=== PATIENT | female | born 1975 | race Caucasian/White ===

== ENCOUNTER 2019-02-25 17:45 | Inpatient (IN) | payer OTHER ==
[~2019-02-25] VITALS: Ht 160 cm; Wt 68.9 kg
[~2019-02-25 17:45] MED LIST changes: -ELIQUIS5 MG PO; -ENTRESTO 49 MG1 EACH PO; -FAMO40 PO; -FURO40 PO; -METO50ER PO
[2019-02-26 01:11] LABS: BASOPHILS ABSOLUTE AUTO 0.05 K/mm3 (0.00-0.23); BASOPHILS PERCENT AUTO 1 % (0-2); EOSINOPHILS ABSOLUTE AUTO 0.07 K/mm3 (0.00-0.68); EOSINOPHILS PERCENT AUTO 1 % (0-6); Hematocrit 45.3 % (33.0-51.0); Hemoglobin 14.3 g/dL (11.5-16.0); IMMATURE GRAN ABSOLUTE AUTO 0.01 K/mm3 (0.00-0.10); IMMATURE GRAN PERCENT AUTO 0 % (0-1); LYMPHOCYTES ABSOLUTE AUTO 2.85 K/mm3 (0.84-5.20); LYMPHOCYTES PERCENT AUTO 32 % (21-46); MONOCYTES ABSOLUTE AUTO 0.36 K/mm3 (0.16-1.47); MONOCYTES PERCENT AUTO 4 % (4-13); Mean Corpuscular HGB 28.1 pg (26.0-34.0); Mean Corpuscular HGB Conc 31.6 g/dL (31.5-36.5); Mean Corpuscular Volume 89 fL (80-100); Mean Platelet Volume 10.7 fL (9.1-12.4); NEUTROPHILS ABSOLUTE AUTO 5.57 K/mm3 (1.96-9.15); NEUTROPHILS PERCENT AUTO 63 % (41-73); Platelet Count 338 K/mm3 (150-400); RDW Coefficient Variation 13.2 % (11.7-14.2); RDW Standard Deviation 43.4 fL (35.1-46.3); Red Blood Cell Count 5.08 M/mm3 (3.80-5.20); White Blood Cell Count 8.91 K/mm3 (4.00-11.30)
[2019-02-26 01:30] LABS: Albumin, Blood 3.9 g/dL (3.4-5.0); Bilirubin, Total 2.2 mg/dL (0.1-1.0); Bun/Creatinine Ratio 14.4 (12.0-20.0); Creatinine, Blood 1.11 mg/dL (0.40-1.00); Globulin, Blood 3.9 g/dL (2.2-4.0); Potassium, Blood 3.4 mmol/L (3.5-5.5); Total Protein, Blood 7.8 g/dL (6.4-8.2); Troponin I 0.047 ng/mL (0.000-0.040)
--- NOTE | 2019-02-26 07:24 | NUR ---
ASSUMED CARE: PT RESTING QUIETLY. HEPARIN GTT IN PLACE. VERIFIED DOSING WITH ETHAN MEIER. SINUS TACH ON TELE AT 104 AT THIS TIME. NO ACUTE NEEDS OR DISTRESS NOTED.
--- NOTE | 2019-02-26 07:26 | NUR ---
ADMIT NOTE/SHIFT SUMMARY PATIENT ADMITTED EARLIER THIS SHIFT FROM THE ER. PATIENT SETTLED IN AND ORIENTED TO THE ROOM, UNIT, AND CALL LIGHT. PATIENT PLEASENT AND COOPERATIVE THROUGHOUT THE NIGHT. PATIENT APPEARED TO SLEEP WELL THROUGHOUT THE REST OF THE NIGHT. HEPARIN GTT RUNNING PER ORDERS AND VERIFIED WITH ONCOMING RN. PATIENT CURRENTLY APPEARS TO BE ASLEP. REPORT GIVEN TO ONCOMING ETHAN.
--- NOTE | 2019-02-26 11:27 | NUR ---
Echocardiogram using 0.50ml of Definity contrast performed.
--- NOTE | 2019-02-26 12:10 | NUR ---
REPORT GIVEN TO ETHAN VICENTE. PT TRANSFERRED TO 332 VIA WHEEL CHAIR BY HOSPITAL STAFF.
--- NOTE | 2019-02-26 17:44 | NUR ---
PT TRANSPORTED UP FROM PCU TODAY. AOX4 AND COOPERATIVE OF CARE. PT INDEPENDENT IN ROOM. DENIED ANY TREATABLE PAIN. STATED HER L LEG WAS FEELING BETTER. PT RESTINING IN BED AND CALLS APPROPRIATELY. PT HAD CAR TRIMMER STOP IN AND SHE WILL BE GOING TO [facility] IN THE AM. TALK OF HER NEW ACUTE CHF WAS VERY EMOTIONAL FOR HER. PT WAS COMFORTED MUCH THIS GEOGRAPHY TEACHER COULD DO. PT RESTING IN ROOM AT THIS TIME WILL CONTINUE TO MONITOR. DENIES SOB AT THIS TIME. PT STILL HAS A COUGH.
[2019-02-26 20:15] LABS: BASOPHILS ABSOLUTE AUTO 0.06 K/mm3 (0.00-0.23); BASOPHILS PERCENT AUTO 1 % (0-2); EOSINOPHILS ABSOLUTE AUTO 0.12 K/mm3 (0.00-0.68); EOSINOPHILS PERCENT AUTO 2 % (0-6); Hematocrit 39.5 % (33.0-51.0); Hemoglobin 12.6 g/dL (11.5-16.0); IMMATURE GRAN ABSOLUTE AUTO 0.02 K/mm3 (0.00-0.10); IMMATURE GRAN PERCENT AUTO 0 % (0-1); LYMPHOCYTES ABSOLUTE AUTO 2.42 K/mm3 (0.84-5.20); LYMPHOCYTES PERCENT AUTO 32 % (21-46); MONOCYTES ABSOLUTE AUTO 0.42 K/mm3 (0.16-1.47); MONOCYTES PERCENT AUTO 6 % (4-13); Mean Corpuscular HGB Conc 31.9 g/dL (31.5-36.5); Mean Corpuscular Volume 88 fL (80-100); Mean Platelet Volume 10.9 fL (9.1-12.4); NEUTROPHILS ABSOLUTE AUTO 4.48 K/mm3 (1.96-9.15); NEUTROPHILS PERCENT AUTO 60 % (41-73); Platelet Count 286 K/mm3 (150-400); RDW Coefficient Variation 13.3 % (11.7-14.2); RDW Standard Deviation 42.7 fL (35.1-46.3); White Blood Cell Count 7.52 K/mm3 (4.00-11.30)
--- NOTE | 2019-02-26 20:48 | NUR ---
NO NEEDS AT THIS TIME. PT HAD BEEN UP INDEPENDENTLY TO THE BATHROOM WITHOUT DIFFICULTY. HEP GTT INFUSING. CALL LT IN REACH.
--- NOTE | 2019-02-26 22:45 | NUR ---
PT RESTING QUIETLY. HEPARIN INFUSING AT 25.1 MLS/HR, 19 UNITS/KG/HR. 95% 02 SATS PER RA, 90 HR PER CONT BIOX. TELE IN PLACE AND CALL LT IN REACH.
--- NOTE | 2019-02-27 00:26 | NUR ---
PT RESTING QUIETLY. RESP E/U ON RA. 95% RA, 93 HR PER CONT BIOX. HEPARIN GTT INFUSING. TELE IN PLACE. CALL LT IN REACH.
--- NOTE | 2019-02-27 01:39 | NUR ---
PT RESTING QUIETLY. NO ACUTE CHANGES.
--- NOTE | 2019-02-27 03:41 | NUR ---
SHIFT SUMMARY: NO ACUTE CHANGES. VITAL SIGNS STABLE. HEART RATE TACHY AT BEGINNING OF SHIFT AT 107. HEART RATE LOW 90'S AT REST PER CONT BIOX. 02 SATS MID NINETIES ON RA. NO COMPLAINTS OF CHEST PAIN OR SOB. RLE EDEMA IMPROVING. HEP GTT AT 19 UNITS/KG/HR AND RATE 25.1 MLS/HR INFUSING WITHOUT DIFFICULTY. NPO AFTER MN FOR ANGIOGRAM TODAY. WILL CONTINUE TO MONITOR AND PROVIDE CARE UNTIL BEDSIDE REPORT TO ONCOMING RN.
[2019-02-27 05:23] LABS: BASOPHILS ABSOLUTE AUTO 0.06 K/mm3 (0.00-0.23); BASOPHILS PERCENT AUTO 1 % (0-2); EOSINOPHILS ABSOLUTE AUTO 0.16 K/mm3 (0.00-0.68); EOSINOPHILS PERCENT AUTO 2 % (0-6); Hemoglobin 13.8 g/dL (11.5-16.0); IMMATURE GRAN ABSOLUTE AUTO 0.01 K/mm3 (0.00-0.10); IMMATURE GRAN PERCENT AUTO 0 % (0-1); LYMPHOCYTES ABSOLUTE AUTO 3.67 K/mm3 (0.84-5.20); LYMPHOCYTES PERCENT AUTO 46 % (21-46); MONOCYTES ABSOLUTE AUTO 0.43 K/mm3 (0.16-1.47); MONOCYTES PERCENT AUTO 5 % (4-13); Mean Corpuscular HGB 27.9 pg (26.0-34.0); Mean Corpuscular HGB Conc 31.4 g/dL (31.5-36.5); Mean Corpuscular Volume 89 fL (80-100); Mean Platelet Volume 11.1 fL (9.1-12.4); NEUTROPHILS ABSOLUTE AUTO 3.68 K/mm3 (1.96-9.15); NEUTROPHILS PERCENT AUTO 46 % (41-73); Platelet Count 299 K/mm3 (150-400); RDW Coefficient Variation 13.3 % (11.7-14.2); RDW Standard Deviation 43.4 fL (35.1-46.3); Red Blood Cell Count 4.95 M/mm3 (3.80-5.20); White Blood Cell Count 8.01 K/mm3 (4.00-11.30)
[2019-02-27 05:55] LABS: Alanine Aminotransfer (ALT/SGP 46 U/L (12-78); Albumin/Globulin Ratio 0.8 (0.8-1.8); Alk Phos 52 U/L (50-136); Anion Gap 8 mmol/L (6-16); Aspartate Aminotrans (AST/SGOT 36 U/L (12-37); Bilirubin, Total 1.1 mg/dL (0.1-1.0); Blood Urea Nitrogen 16 mg/dL (8-24); Bun/Creatinine Ratio 16.9 (12.0-20.0); CO2, Blood 25 mmol/L (21-32); Calcium, Blood 8.5 mg/dL (8.5-10.1); Chloride, Blood 105 mmol/L (98-108); Creatinine, Blood 0.95 mg/dL (0.40-1.00); Globulin, Blood 3.7 g/dL (2.2-4.0); Glomerular Filtration Rate >60 (60-); Glucose, Blood 110 mg/dL (70-99); Potassium, Blood 3.7 mmol/L (3.5-5.5); Sodium, Blood 138 mmol/L (136-145); Total Protein, Blood 6.7 g/dL (6.4-8.2)
--- NOTE | 2019-02-27 06:26 | NUR ---
VERIFIED DOSE ADJUSTMENT WITH CHRISTINE ANNA RN. NEW RATE CHANGE 20 UNITS/KG/HR WITH A RATE OF 26.4 MLS/HR.
--- NOTE | 2019-02-27 11:57 | NUR ---
PT AOX4 THIS AM REPORTED HEADACHE AND WAS TREATED PER EMAR. PT INDEPENDENT IN ROOM AND LEFT FOR ETCHER ELECTROLYTIC AT 0940. NO DISTESS NOTED. PT MOVED TO PCU 7 AT 1154 CALLED BY RECIEVING NURSE.
--- NOTE | 2019-02-27 17:33 | NUR ---
SHIFT SUMMARY ASSUMED CARE AT APPROXIMATELY 1210. PT TRANSFERRED TO PCU FROM [facility]. PT ALERT AND ORIENTED. VS STABLE. O2 SATS HAVE REMAINED ABOVE 90% ON RA. BP STABLE. HR NSR. PT DENIES ANY PAIN. RIGHT RADIAL SITE WITH TR BAND IN PLACE WITH ALL OF THE AIR REMOVED. NO SIGNS OF BLEEDING, HEMATOMA, OR BRUISING NOTED. RIGHT BRACHIAL SITE WITH JENNY DRESSING IN PLACE. NO BLEEDING HEMATOMA OR BRUISING NOTED. HEPARIN GTT DISCONTINUED AFTER ELIQUIS ADMINISTRATION PER ORDERS. WILL CONTINUE TO MONITOR AND REPORT TO ONCOMING RN. CALL LIGHT IN REACH.
[2019-02-28 04:08] LABS: BASOPHILS ABSOLUTE AUTO 0.06 K/mm3 (0.00-0.23); BASOPHILS PERCENT AUTO 1 % (0-2); EOSINOPHILS ABSOLUTE AUTO 0.18 K/mm3 (0.00-0.68); EOSINOPHILS PERCENT AUTO 2 % (0-6); Hematocrit 44.1 % (33.0-51.0); Hemoglobin 13.7 g/dL (11.5-16.0); IMMATURE GRAN ABSOLUTE AUTO 0.01 K/mm3 (0.00-0.10); IMMATURE GRAN PERCENT AUTO 0 % (0-1); LYMPHOCYTES ABSOLUTE AUTO 2.78 K/mm3 (0.84-5.20); LYMPHOCYTES PERCENT AUTO 31 % (21-46); MONOCYTES ABSOLUTE AUTO 0.58 K/mm3 (0.16-1.47); MONOCYTES PERCENT AUTO 7 % (4-13); Mean Corpuscular HGB 27.5 pg (26.0-34.0); Mean Corpuscular HGB Conc 31.1 g/dL (31.5-36.5); Mean Corpuscular Volume 89 fL (80-100); NEUTROPHILS ABSOLUTE AUTO 5.36 K/mm3 (1.96-9.15); NEUTROPHILS PERCENT AUTO 60 % (41-73); Platelet Count 317 K/mm3 (150-400); RDW Coefficient Variation 13.2 % (11.7-14.2); RDW Standard Deviation 43.3 fL (35.1-46.3); Red Blood Cell Count 4.98 M/mm3 (3.80-5.20); White Blood Cell Count 8.97 K/mm3 (4.00-11.30)
[2019-02-28 04:38] LABS: Alanine Aminotransfer (ALT/SGP 36 U/L (12-78); Albumin/Globulin Ratio 0.9 (0.8-1.8); Alk Phos 50 U/L (50-136); Anion Gap 8 mmol/L (6-16); Aspartate Aminotrans (AST/SGOT 27 U/L (12-37); Bilirubin, Total 0.7 mg/dL (0.1-1.0); Blood Urea Nitrogen 17 mg/dL (8-24); Bun/Creatinine Ratio 16.3 (12.0-20.0); CO2, Blood 24 mmol/L (21-32); Calcium, Blood 8.4 mg/dL (8.5-10.1); Chloride, Blood 108 mmol/L (98-108); Creatinine, Blood 1.04 mg/dL (0.40-1.00); Globulin, Blood 3.5 g/dL (2.2-4.0); Glomerular Filtration Rate >60 (60-); Glucose, Blood 112 mg/dL (70-99); Potassium, Blood 3.8 mmol/L (3.5-5.5); Sodium, Blood 140 mmol/L (136-145); Total Protein, Blood 6.5 g/dL (6.4-8.2)
--- NOTE | 2019-02-28 06:01 | NUR ---
SHIFT SUMMARY PT SLEPT SEVERAL HOURS IN BETWEEN INTERVENTIONS; VSS; O2 SATS >93 ON RA; PULSE OX TAKEN ON SECOND DIGIT R HAND; PT C/O BACK PAIN AND DISCOMFORT; REPOSITIONED; HEAT PAD BROUGHT TO PT; TYLENOL ADMINISTERED PER EMAR; R RADIAL SITE DRY; NO CHANGES; R BRACHIAL SITE DRY; JENNY DRESSING IN PLACE; NO CHANGES; CALL LIGHT IN REACH; BED IN LOWEST POSITION; WILL CONTINUE TO MONITOR CLOSELY UNTIL HAND OFF TO DAY SHIFT RN.
[2019-02-28] MEDS ORDERED: FAMO40 PO (13:27)
[2019-02-28] MEDS ORDERED: FURO40 PO (13:28)
[2019-02-28] MEDS ORDERED: ELIQUIS5 MG PO (13:28)
[2019-02-28] MEDS ORDERED: METO50ER PO (13:29)
[2019-02-28] MEDS ORDERED: ENTRESTO 49 MG1 EACH PO (13:36)
--- NOTE | 2019-02-28 14:30 | NUR ---
DISCHARGE NOTE PT ALERT AND ORIENTED. VS STABLE. O2 SATS HAVE REMAIN ABOVE 90% ON RA. BP STABLE. HR NSR. PT DENIES CP. DR. TUCKER IN THIS AFTERNOON WITH ORDERS FOR DISCHARGE. PLAN TO SET UP LIFE [facility] THIS WEEK. DISCHARGE INSTRUCTIONS PROVIDED. NEW MEDICATIONS EDUCATED TO PT. ALL QUESTIONS ANSWERED. PT TAKEN OUT BY WHEELCHAIR.
== END 2019-02-28 14:26 | disposition home or self-care (01) | DRG 286 ==
LOC: ER 17:45 → PCU 23:37 → MEDS 02-26 12:23 → PCU 02-27 11:53
PROVIDERS: Internal Medicine; Internal Medicine Interventional Cardiology; Nurse Practitioner Acute Care; ADMIT Hospitalist
PROC: B2111ZZ Fluoroscopy of Multiple Coronary Arteries using Low Osmolar Contrast (ICD-10-PCS; principal; 2019-02-26)
PROC: 4A023N8 Measurement of Cardiac Sampling and Pressure, Bilateral, Percutaneous Approach (ICD-10-PCS; 2019-02-26)
DX: I11.0 Hypertensive heart disease with heart failure (principal); I26.99 Other pulmonary embolism without acute cor pulmonale; I50.21 Acute systolic (congestive) heart failure; N17.9 Acute kidney failure, unspecified; I82.409 Acute embolism and thrombosis of unspecified deep veins of unspecified lower extremity; I42.0 Dilated cardiomyopathy; K21.9 Gastro-esophageal reflux disease without esophagitis; E87.6 Hypokalemia
CPT/HCPCS: 36415; 71260; 74176; 76937; 80053; 81025; 83690; 83880; 84484; 85025; 85347; 85730; 93005; 93010; 93460; 94762; 96365-59; 96366; 96375-59; 99152; 99153; 99285-25; A9270; C1769; C1894; C8929; J1644; J1940; J2250; J3010; J7030; Q9957; Q9967

== ENCOUNTER → 2019-02-25 | Outpatient (CLI) | payer OTHER ==
[~2019-02-25] MED LIST: CETI5 PO; ELIQUIS5 MG PO; ENTRESTO 49 MG1 EACH PO; FAMO40 PO; FURO40 PO; HYDACE5 PO; METO50ER PO; PRED20 PO; Zantac150 MG PO
[2019-02-25 18:10] LABS: BASOPHILS ABSOLUTE AUTO 0.06 K/mm3 (0.00-0.23); BASOPHILS PERCENT AUTO 1 % (0-2); EOSINOPHILS ABSOLUTE AUTO 0.04 K/mm3 (0.00-0.68); EOSINOPHILS PERCENT AUTO 1 % (0-6); Hematocrit 42.2 % (33.0-51.0); Hemoglobin 13.2 g/dL (11.5-16.0); IMMATURE GRAN ABSOLUTE AUTO 0.01 K/mm3 (0.00-0.10); IMMATURE GRAN PERCENT AUTO 0 % (0-1); LYMPHOCYTES ABSOLUTE AUTO 2.72 K/mm3 (0.84-5.20); LYMPHOCYTES PERCENT AUTO 32 % (21-46); MONOCYTES ABSOLUTE AUTO 0.34 K/mm3 (0.16-1.47); MONOCYTES PERCENT AUTO 4 % (4-13); Mean Corpuscular HGB 28.3 pg (26.0-34.0); Mean Corpuscular HGB Conc 31.3 g/dL (31.5-36.5); Mean Corpuscular Volume 90 fL (80-100); Mean Platelet Volume 11.2 fL (9.1-12.4); NEUTROPHILS ABSOLUTE AUTO 5.22 K/mm3 (1.96-9.15); NEUTROPHILS PERCENT AUTO 62 % (41-73); Platelet Count 302 K/mm3 (150-400); RDW Coefficient Variation 13.3 % (11.7-14.2); RDW Standard Deviation 44.4 fL (35.1-46.3); Red Blood Cell Count 4.67 M/mm3 (3.80-5.20); White Blood Cell Count 8.39 K/mm3 (4.00-11.30)
[2019-02-25 18:31] LABS: Albumin, Blood 3.3 g/dL (3.4-5.0); Albumin/Globulin Ratio 0.9 (0.8-1.8); Bilirubin, Total 1.2 mg/dL (0.1-1.0); Bun/Creatinine Ratio 16.8 (12.0-20.0); Calcium, Blood 8.6 mg/dL (8.5-10.1); Creatinine, Blood 1.07 mg/dL (0.40-1.00); Globulin, Blood 3.5 g/dL (2.2-4.0); Total Protein, Blood 6.8 g/dL (6.4-8.2); Troponin I 0.056 ng/mL (0.000-0.040)
== END | disposition home or self-care (01) ==
LOC: LAB SHORT 17:23 → LAB 17:23
PROVIDERS: Nurse Practitioner
DX: R06.00 Dyspnea, unspecified (principal)
CPT/HCPCS: 80053; 83880; 84484; 85025; 85379

== ENCOUNTER 2022-06-27 13:51 | Emergency (ER) | payer OTHER ==
[~2022-06-27] VITALS: Ht 160 cm; Wt 72.6 kg
[~2022-06-27 13:51] MED LIST changes: +ELIQUIS5 MG PO; +ENTRESTO 49 MG1 EACH PO; +FAMO40 PO; +FURO40 PO; +METO50ER PO
[2022-06-27 14:04] VITALS: BP 167/104
[2022-06-27 14:24] LABS: BASOPHILS ABSOLUTE AUTO 0.04 K/mm3 (0.00-0.23); BASOPHILS PERCENT AUTO 0 % (0-2); EOSINOPHILS PERCENT AUTO 0 % (0-6); Hematocrit 34.7 % (33.0-51.0); Hemoglobin 9.7 g/dL (11.5-16.0); IMMATURE GRAN ABSOLUTE AUTO 0.07 K/mm3 (0.00-0.10); IMMATURE GRAN PERCENT AUTO 1 % (0-1); LYMPHOCYTES ABSOLUTE AUTO 1.32 K/mm3 (0.84-5.20); LYMPHOCYTES PERCENT AUTO 9 % (21-46); MONOCYTES PERCENT AUTO 5 % (4-13); Mean Corpuscular Volume 68 fL (80-100); NEUTROPHILS ABSOLUTE AUTO 12.45 K/mm3 (1.96-9.15); NEUTROPHILS PERCENT AUTO 85 % (41-73); Platelet Count 478 K/mm3 (150-400); RDW Coefficient Variation 20.2 % (11.7-14.2); RDW Standard Deviation 47.5 fL (35.1-46.3); White Blood Cell Count 14.58 K/mm3 (4.00-11.30)
[2022-06-27 14:46] LABS: Albumin, Blood 3.7 g/dL (3.4-5.0); Bilirubin, Total 0.7 mg/dL (0.1-1.0); Bun/Creatinine Ratio 26.8 (12.0-20.0); Calcium, Blood 8.9 mg/dL (8.5-10.1); Creatinine, Blood 0.9 mg/dL (0.40-1.00); Globulin, Blood 3.6 g/dL (2.2-4.0); Potassium, Blood 3.9 mmol/L (3.5-5.5); Total Protein, Blood 7.3 g/dL (6.4-8.2)
[2022-06-27 17:51] LABS: Percent Saturation 3.7 % (15.0-50.0)
== END 2022-06-27 19:46 | disposition home or self-care (01) ==
LOC: ER 13:51
PROVIDERS: Physician Assistant; Student in an Organized Health Care Education/Training Program
DX: T14.8XXA Other injury of unspecified body region, initial encounter (principal); D50.9 Iron deficiency anemia, unspecified; X58.XXXA Exposure to other specified factors, initial encounter; I11.0 Hypertensive heart disease with heart failure; I50.9 Heart failure, unspecified; K21.9 Gastro-esophageal reflux disease without esophagitis
CPT/HCPCS: 36415; 71046; 80053; 83540; 83550; 83880; 84484; 85025; 85379; 93005; 93010; 96374; 99284-25; J1885

== ENCOUNTER 2023-01-15 21:07 | Inpatient (IN) | payer OTHER ==
[~2023-01-15] VITALS: Ht 160 cm; Wt 76.8 kg
[2023-01-15 21:50] LABS: Hematocrit 38.8 % (33.0-51.0); Hemoglobin 11.5 g/dL (11.5-16.0); Mean Corpuscular HGB 22.3 pg (26.0-34.0); Mean Corpuscular HGB Conc 29.6 g/dL (31.5-36.5); Mean Corpuscular Volume 75 fL (80-100); Mean Platelet Volume 10.4 fL (9.1-12.4); NRBC ABSOLUTE 0.24 K/mm3 (0.00-0.02); NRBC Auto 0.6 /100 WBC (0.0-0.2); Platelet Count 281 K/mm3 (150-400); RDW Coefficient Variation 19.5 % (11.7-14.2); Red Blood Cell Count 5.15 M/mm3 (3.80-5.20); White Blood Cell Count 40.88 K/mm3 (4.00-11.30)
[2023-01-15 22:13] LABS: Alanine Aminotransfer (ALT/SGP 75 U/L (12-78); Albumin, Blood 2.5 g/dL (3.4-5.0); Albumin/Globulin Ratio 0.5 (0.8-1.8); Alk Phos 91 U/L (50-136); Anion Gap 11 mmol/L (6-16); Aspartate Aminotrans (AST/SGOT 75 U/L (12-37); Bilirubin, Total 1.6 mg/dL (0.1-1.0); Blood Urea Nitrogen 48 mg/dL (8-24); Bun/Creatinine Ratio 15.1 (12.0-20.0); CO2, Blood 20 mmol/L (21-32); Calcium, Blood 8.4 mg/dL (8.5-10.1); Chloride, Blood 102 mmol/L (98-108); Creatinine, Blood 3.18 mg/dL (0.40-1.00); Globulin, Blood 4.6 g/dL (2.2-4.0); Glomerular Filtration Rate 17 (60-); Glucose, Blood 83 mg/dL (70-99); Potassium, Blood 4.5 mmol/L (3.5-5.5); Sodium, Blood 133 mmol/L (136-145); Total Protein, Blood 7.1 g/dL (6.4-8.2)
[2023-01-15 22:42] LABS: BAND PERCENT MAN 15 % (0-8); BASOPHILS PERCENT MAN 1 % (0-2); EOSINOPHILS PERCENT MAN 0 % (0-6); MONOCYTES ABSOLUTE MAN 0.81 K/mm3 (0.16-1.47); MONOCYTES PERCENT MAN 2 % (4-13); NEUTROPHILS ABSOLUTE MAN 39.24 K/mm3 (1.96-9.15); PROMYELOCYTE PERCENT MAN 1 % (0-0); SEG NEUTROPHILS PERCENT MAN 81 % (41-73); TOTAL CELLS COUNTED 100
[2023-01-15 22:46] LABS: Base Excess Venous -4.9 mmol/L; Bicarbonate Venous 19.8 mmol/L (24.0-30.0); PCO2 Venous 45.8 mmHg (38-42); pH Blood Venous 7.29 (7.34-7.37)
[2023-01-15 22:55] LABS: Ethanol (Alcohol), Blood, Med <3 mg/dL; Magnesium, Blood 1.8 mg/dL (1.6-2.4); Phosphorus, Blood 5.3 mg/dL (2.5-4.9)
[2023-01-15 23:38] LABS: D-Dimer, Quantitative 1.76 mg/L FEU (0.00-0.52); International Normalized Ratio 1.57; Prothrombin Time Results 16.1 Sec (9.7-11.5)
[2023-01-16] VITALS (42 sets, daily range): BP systolic 66–105; BP diastolic 38–69
[2023-01-16] MEDS ORDERED: ACET325 PO (04:15)
--- NOTE | 2023-01-16 05:25 | NUR ---
ARRIVAL TO ICU: RECEIVED REPORT FROM ZAIDA LONG. PT ARRIVED TO ICU 03 AT 0315 FROM ER VIA GURNEY. SLID ACROSS TO ICU BED WITH ASSIST. PT ALERT AND ORIENTED TO TIME, PERSON, PLACE AND SITUATION. ABLE TO ANSWER QUESTIONS AND MAKE NEEDS KNOWN. PT ON LEVOPHED AT 7 MCG/MIN TO MAINTAIN MAP >65. ST WITH HR 100'S. DENIES CHEST PAIN OR PRESSURE. PT ON 7L HI-FLOW WITH SATS >90%. PT ENDORSES FEELING SOB AT TIMES, WHICH IS RELIEVED WITH REPOSITIONING. LUNG SOUNDS DIM WITH FINE CRACKLES NOTED. NO BM YET SINCE ARRIVAL TO ICU, NO VOID YET. PT DENIES FEELING LIKE SHE HAS TO VOID. PT HAS 20 G LAC, 20G RAC, SALINE LOCKED CURRENTLY. DR. CARDENAS AT BEDSIDE TO PLACE CENTRAL LINE. CENTRAL LINE IN RIGHT IJ, PATENT AND INFUSING. HEPARIN GTT STARTED AT 18 UNITS/KG/HR. LOWER LEFT LEG WARM TO THE TOUCH, EDEMA NOTED AND LARGE BLACK BLISTERS NOTED TO LEFT FOOT. PATIENT C/O SEVERE PAIN TO LLE, MEDICATED PER EMAR. BED LOW AND LOCKED, CALL LIGHT IN REACH.
[2023-01-16 07:03] LABS: Hematocrit 36.2 % (33.0-51.0); Hemoglobin 10.7 g/dL (11.5-16.0); Mean Corpuscular HGB 22.1 pg (26.0-34.0); Mean Corpuscular HGB Conc 29.6 g/dL (31.5-36.5); Mean Corpuscular Volume 75 fL (80-100); Mean Platelet Volume 10.7 fL (9.1-12.4); NRBC ABSOLUTE 0.42 K/mm3 (0.00-0.02); Platelet Count 311 K/mm3 (150-400); RDW Coefficient Variation 19.2 % (11.7-14.2); RDW Standard Deviation 50.1 fL (35.1-46.3); Red Blood Cell Count 4.85 M/mm3 (3.80-5.20); White Blood Cell Count 42.42 K/mm3 (4.00-11.30)
--- NOTE | 2023-01-16 07:15 | NUR ---
SHEET METAL JOURNEYMAN AT BEDSIDE.
[2023-01-16 07:17] LABS: Albumin, Blood 2.2 g/dL (3.4-5.0); Albumin/Globulin Ratio 0.5 (0.8-1.8); Bilirubin, Total 1.6 mg/dL (0.1-1.0); Bun/Creatinine Ratio 13.8 (12.0-20.0); Calcium, Blood 8.2 mg/dL (8.5-10.1); Creatinine, Blood 3.77 mg/dL (0.40-1.00); Globulin, Blood 4.2 g/dL (2.2-4.0); Potassium, Blood 4.7 mmol/L (3.5-5.5); Total Protein, Blood 6.4 g/dL (6.4-8.2)
[2023-01-16 07:34] LABS: BAND PERCENT MAN 8 % (0-8); BASOPHILS PERCENT MAN 0 % (0-2); EOSINOPHILS PERCENT MAN 0 % (0-6); LYMPHOCYTES % ATYPICAL MANUAL 1 % (0-0); LYMPHOCYTES ABSOLUTE MAN 0.42 K/mm3 (0.84-5.20); METAMYELOCYTE ABSOLUTE MAN 0.42 K/mm3 (0.00-0.00); METAMYELOCYTE PERCENT MAN 1 % (0-0); MONOCYTES ABSOLUTE MAN 1.27 K/mm3 (0.16-1.47); MONOCYTES PERCENT MAN 3 % (4-13); NEUTROPHILS ABSOLUTE MAN 40.29 K/mm3 (1.96-9.15); SEG NEUTROPHILS PERCENT MAN 87 % (41-73); TOTAL CELLS COUNTED 100
--- NOTE | 2023-01-16 08:00 | NUR ---
RESIDENTS AND DR. KELLY TO BEDSIDE. SHOWED DR. KELLY PT'S L FOOT AND LEG AND REQUESTED A CT. L FOOT HAS PURPLE DISCOLORATION AROUND SMALL TOE AND UP THE SIDE OF THE FOOT. THIS RN MARKED OUTLINE WITH MARKER. ALSO HAS LARGE BLACK BLISTER TO THE SIDE OF FOOT AND ONE TO THE BOTTOM OF THE FOOT BOTH INTACT. WOUND PHOTOS TAKEN. PT ALSO HAS A PEA SIZED PURPLE SPOT TO L INNER CALF. DOPPLER PULSES FOUND BILAT. SKIN TO L LEG UP TO GROIN IS RED AND HOT TO THE TOUCH. LEGS ARE SWOLLEN BILAT BUT THE L IS BIGGER THAN R. REMAINS HYPOTENSIVE. MENTATION IS SLOWER THAN WHAT WAS REPORTED IN [facility].
--- NOTE | 2023-01-16 08:35 | NUR ---
PT TAKEN TO CT VIA BED WITH RN ACCOMPANYING. PT IS PAINFUL WITH ANY MOVEMENT OF L LEG BUT OTHERWISE WILL SLEEP WHEN LEFT UNDISTURBED.
[2023-01-16 11:11] LABS: Vancomycin, Random 22.7 ug/mL
--- NOTE | 2023-01-16 11:20 | NUR ---
ORDERS FROM DR. KELLY TO PLACE BRANCH PT IS CRITICALLY ILL AND HAS NOT VOIDED YET. WHILE PREPARING FOR CATH RN NOTICED A FOUL ODOR AND COULD SEE A TAMPON STRING. WHEN ASKED ABOUT HOW LONG AGO IT WAS PLACED PT STATES "PROBABLY A DAY AND A HALF AGO". REMOVED TAMPON, DID PERICARE, THEN PLACED BRANCH PER ORDERS. CALLED DR. KELLY TO NOTIFY HER OF FINDINGS. DR. RAZO HAS BEEN CONSULTED FOR L LEG WOUND. PURPLE DISCOLORATION TO FOOT IS STILL WITHIN MARKINGS MADE EARLIER BY THIS RN, REDNESS UNCHANGED, AND DOPPLER PULSES WELL. CONTINUES TO BE HYPOTENSIVE AND LET DR. KELLY KNOW, NEW ORDERS FOR ALBUMIN TO BE GIVEN BEFORE VASOPRESSIN.
[2023-01-16 11:29] LABS: U Amphetamine Screen DETECTED; U Barbituate Screen Not Detected; U Benzodiazapine Screen Not Detected; U Buprenorphine Screen Not Detected; U Cannabinoids Screen Not Detected; U Cocaine Screen Not Detected; U Methadone Screen Not Detected; U Methamphetamine Screen DETECTED; U Opiates Screen Not Detected; U Oxycodone Screen DETECTED; U Phencyclidine Screen Not Detected
--- NOTE | 2023-01-16 12:05 | NUR ---
DR. RAZO AT BEDSIDE FOR EVAL OF L LEG. UPDATED ON CONDITION AND PRESSORS. BLISTER TO OUTER SIDE OF THE FOOT BROKE OPEN WITH SEROSANGUINOUS FLUID. DR. RAZO ORDERED HEPARIN TO BE STOPPED NOW AND PTT TO BE DRAWN AT 1330 TO PREPARE PT TO GO TO OR. CADY PALLIATIVE CARE RN IS GOING TO CONTACT S.O.
--- NOTE | 2023-01-16 13:00 | NUR ---
VASOPRESSIN STARTED. S.O. AT BEDSIDE, DR. KELLY UPDATING HIM. PALLIATIVE CARE AND SPIRITUAL CARE ASSISTING WITH NEEDS AND QUESTIONS. DR. SKY ALSO CAME BY TO SEE PT.
--- NOTE | 2023-01-16 14:40 | NUR ---
ANESTHESIOLOGIST CALLED TO REQUEST TALENT SOURCING SPECIALIST TO PLACE AN A-LINE BEFORE SURGERY. DR. AUGUST PLACED ONE TO R RADIAL.
--- NOTE | 2023-01-16 15:27 | NUR ---
"Spiritual Care Visit | Nurse Request Pt. is being prepped for surgery and SO displays evidence of high anxiety. Stayed with SO in the hallway giving words of encouragement and facilitating a life review as the medical team prepared the Pt. for surgery. Whene surgical team came for the Pt. Pt. displayed evidence of not being aware that she would be having an amputation of the lower leg. Pt. displayed emotions and anxiety. The Pt. welcomed prayer in that charged moment. Prayed with Pt. and SO. When team brought Pt. to surgery. This casting chipper escorted SO to the ICU waiting room, and informed attending nurses where he was waiting."
--- NOTE | 2023-01-16 15:49 | NUR ---
PT TAKEN TO OR VIA BED BY BARKING MACHINE FEEDER AND DR. RAZO. PT WAS CONVERSING WITH S.O. BEFORE LEAVING THE ROOM BUT STILL VERY DROWSY.
--- NOTE | 2023-01-16 16:01 | NUR ---
01/16/23 1600 Gricelda Patel NO PREOP ANTIBIOTCS PATIENT IS ON SCHEDULED ANTIBIOTICS PER .
--- NOTE | 2023-01-16 16:06 | NUR ---
Pt can respond but minimal due to sepsis and fatigue. Pt seen by ortho and intesivist. Pt going to surgery for intervention. Called to come in and give him information on surgery and prognosis. Pt SO understanble distraught. Chaplina called for support. Central line consented and placed pt sent to OR. kps score 30%. gently advised of severity of her condition.
--- NOTE | 2023-01-16 17:00 | NUR ---
PT BACK FROM OR. INTUBATED AND VERSED PUSHED BY ANESTHESIOLOGIST WHEN BACK IN ROOM. LEVOPHED AT 22MCG/MIN AND VASOPRESSIN RUNNING. NO SPONT MOVEMENT FROM PT. OG PLACED AND CONFIRMED WITH AUSCULATION. PT HAS L BKA WITH DONOVAN DRAIN TO STUMP THAT HAS SEROSANG DRAINAGE. HAS STUMP SOCK IN PLACE, NO BLEEDING NOTED. STILL HAS REDNESS TO THIGH. A-LINE WITH GOOD PLETH TO R RADIAL, ARM BOARD IN PLACE. DR. AUGUST CONSULTED AND WILL BE IN TO SEE PT. SEE PREVIOUS NOTES FOR SCOPE OF THE DAY. UPDATED S.O. AFTER PT HAS RETURNED FROM SURGERY.
[2023-01-16 17:48] LABS: Body Fluid Crystals NEG (NEGATIVE)
[2023-01-16 18:03] LABS: BODY FLUID RBC 0.027 M/mm3 (0-0)
[2023-01-16 18:45] LABS: RBC Count, Synovial Fluid 27000 /mm3 (0-0); WBC Count, Synovial Fluid 150660 /mm3 (0-180)
--- NOTE | 2023-01-16 19:15 | NUR ---
ASSUMPTION OF CARE: RECEIVED REPORT FROM ZEFERINO LONG. PT INTUBATED AND SEDATED. DOES NOT FOLLOW COMMANDS. DOES NOT OPEN EYES TO VERBAL STIMULI OR WITHDRAW FROM PAIN. AC/VC SETTINGS 14/450/5/80%. SPO2 >94%. NO COUGH, GAG OR SWALLOW NOTED WITH ORAL OR DEEP SUCTIONING. SMALL THICK SECRETIONS NOTED. PT ON LEVOPHED AT 22 MCG/MIN, VASO AT 0.04 UNITS/MIN TO MAINTAIN MAP >65. SR/ST 90'S-100'S. LR INFUSING AT 250 ML/HR. ART LINE TO RIGHT RADIAL. CENTRAL LINE TO RIGHT IJ, INFUSING. PIV TO LAC AND RAC, INFUSING. OGT IN PLACE, CLAMPED. PUPILS SLUGGISH BILATERALLY. DONOVAN DRAIN TO SURGICAL SITE, DRAINING SMALL AMOUNTS OF RED LIQUID. LEFT BKA HAS DRESSING INTACT THAT IS CLEAN AND DRY. BRANCH IN PLACE, PATENT AND DRAINING TO GRAVITY. SKIN IS WARM TO THE TOUCH WITH AN AREA OF REDNESS ABOVE SURGICAL SITE, MARKED WITH A SKIN MARKER.
[2023-01-16 19:16] LABS: Lymphs, Synovial Fluid 1 % (0-15); Monocytes/Macrophages, Synovia 6 % (0-65); Neutrophils, Synovial Fluid 93 % (0-24)
[2023-01-16 19:18] LABS: Appearance, Synovial Fluid Turbid (Clear); Color, Synovial Fluid Yellow (None-P Yel)
[2023-01-16 20:58] LABS: Source, Urine Foley catheter
[2023-01-16 21:01] LABS: Appearance, Urine Hazy (Clear); Bilirubin, Urine Neg (Neg); Blood, Urine 5+ (Neg); Color, Urine Yellow (P-Yellow); Glucose Qualitative, Urine Neg (Neg); Ketones, Urine Neg (Neg); Leukocyte Esterase, Urine 2+ (Neg); Nitrite, Urine Neg (Neg); Protein, Urine 3+ (Neg); Urobilinogen, Urine NORM (Normal)
[2023-01-16 21:07] LABS: Amorphous Mod (0-Heavy); Bacteria Mod /hpf; Mucus Light (0-Heavy); Red Blood Cells, Urine TNTC /hpf (0-2); Squamous Epithelial Cells Not Seen /hpf (Few)
[2023-01-16 22:57] LABS: Anion Gap 11 mmol/L (6-16); Blood Urea Nitrogen 56 mg/dL (8-24); CO2, Blood 19 mmol/L (21-32); Calcium, Blood 7.5 mg/dL (8.5-10.1); Chloride, Blood 101 mmol/L (98-108); Creatinine, Blood 4.01 mg/dL (0.40-1.00); Glomerular Filtration Rate 13 (60-); Glucose, Blood 135 mg/dL (70-99); Potassium, Blood 5.8 mmol/L (3.5-5.5); Sodium, Blood 131 mmol/L (136-145); Vancomycin, Random 19.1 ug/mL
[2023-01-16 23:18] LABS: PCO2 Arterial 42.6 mmHg (35-45)
[2023-01-17] VITALS (11 sets, daily range): BP systolic 125–149; BP diastolic 66–78
[2023-01-17 05:24] LABS: Hematocrit 31.7 % (33.0-51.0); Hemoglobin 9.4 g/dL (11.5-16.0); Mean Corpuscular HGB Conc 29.7 g/dL (31.5-36.5); Mean Corpuscular Volume 74 fL (80-100); Mean Platelet Volume 10.7 fL (9.1-12.4); NRBC ABSOLUTE 1.57 K/mm3 (0.00-0.02); NRBC Auto 4.9 /100 WBC (0.0-0.2); Platelet Count 220 K/mm3 (150-400); RDW Coefficient Variation 18.7 % (11.7-14.2); RDW Standard Deviation 49.9 fL (35.1-46.3); Red Blood Cell Count 4.27 M/mm3 (3.80-5.20); White Blood Cell Count 32.28 K/mm3 (4.00-11.30)
--- NOTE | 2023-01-17 05:46 | NUR ---
SHIFT SUMMARY: PT REMAINS INTUBATED AND SEDATED T/O THE SHIFT. WITHDRAWS FROM PAIN, NOT FOLLOWING COMMANDS OR OPENING EYES TO VERBAL STIMULI. COUGH,GAG,SWALLOW NOTED. THICK, XIONG SECRETIONS FROM ET TUBE. AC/PC 15/8, 75% FIO2, WITH RATE 16. SPO2 >94%. LEVOPHED TITRATED T/O THE SHIFT, CURRENTLY INFUSING AT 24 MCG/MIN WITH VASOPRESSIN AT 0.04 UNITS/MIN TO MAINTAIN MAP >65. NORMAL SALINE AT 200 ML/HR. PROPOFOL AT 25 MCG/KG/MIN. CENTRAL LINE TO RIJ, INFUSING. RIGHT RADIAL ART LINE IN PLACE. PIVS INTACT, PATENT AND INFUSING. OGT CLAMPED. BRANCH PATENT AND DRAINING TO GRAVITY, DARK YELLOW URINE. LEFT BKA DRESSING CLEAN, DRY AND INTACT. DONOVAN DRAIN IN PLACE, DRAINING VERY MINIMAL AMOUNT OF RED LIQUID. TEMP 100.1, FAN IN PLACE. SCREENPLAY WRITER CONTINUOUS, SR WITH RATE 80'S-90'S. BED LOW AND LOCKED.
[2023-01-17 05:57] LABS: BAND PERCENT MAN 16 % (0-8); BASOPHILS PERCENT MAN 0 % (0-2); EOSINOPHILS PERCENT MAN 0 % (0-6); LYMPHOCYTES ABSOLUTE MAN 0.96 K/mm3 (0.84-5.20); LYMPHOCYTES PERCENT MAN 3 % (21-46); MONOCYTES ABSOLUTE MAN 0.96 K/mm3 (0.16-1.47); MONOCYTES PERCENT MAN 3 % (4-13); NEUTROPHILS ABSOLUTE MAN 30.34 K/mm3 (1.96-9.15); SEG NEUTROPHILS PERCENT MAN 78 % (41-73); TOTAL CELLS COUNTED 100
[2023-01-17 06:06] LABS: Alanine Aminotransfer (ALT/SGP 73 U/L (12-78); Albumin/Globulin Ratio 0.7 (0.8-1.8); Alk Phos 70 U/L (50-136); Anion Gap 10 mmol/L (6-16); Aspartate Aminotrans (AST/SGOT 157 U/L (12-37); Bilirubin, Total 2.2 mg/dL (0.1-1.0); Blood Urea Nitrogen 59 mg/dL (8-24); Bun/Creatinine Ratio 14.4 (12.0-20.0); CO2, Blood 18 mmol/L (21-32); Calcium, Blood 7.2 mg/dL (8.5-10.1); Chloride, Blood 102 mmol/L (98-108); Creatinine, Blood 4.11 mg/dL (0.40-1.00); Globulin, Blood 4.4 g/dL (2.2-4.0); Glomerular Filtration Rate 13 (60-); Glucose, Blood 136 mg/dL (70-99); Potassium, Blood 5.8 mmol/L (3.5-5.5); Sodium, Blood 130 mmol/L (136-145); Total Protein, Blood 7.4 g/dL (6.4-8.2); Vancomycin, Random 7.5 ug/mL
--- NOTE | 2023-01-17 11:00 | NUR ---
DR. RAZO IN TO SEE PT. SHE TOOK DRESSING DOWN AND EXAMINED LEG. SUTURES AND PETROLEUM GUAZE INTACT, NO DRAINAGE. DONOVAN DRAIN TO KNEE WITH SM AMT OF SEROSANG DRAINAGE, SECURED WITH SUTURES. 4X4'S PLACED OVER SITE AND WRAPPED WITH KERLEX THEN MARIA FERNANDA BANDAGE, THEN SECURED WITH STUMP SOCK. PT HAS MOTTLING OVER BOTH KNEES, MD'S AWARE. PT REMAINS ON HIGH DOSE OF PRESSORS.
[2023-01-17 13:25] LABS: Base Excess Venous -13.8 mmol/L; Bicarbonate Venous 13.9 mmol/L (24.0-30.0); PCO2 Venous 41.8 mmHg (38-42)
[2023-01-17 13:26] LABS: pH Blood Venous 7.16 (7.34-7.37)
[2023-01-17 13:46] LABS: Bun/Creatinine Ratio 14.2 (12.0-20.0); Creatinine, Blood 4.38 mg/dL (0.40-1.00); Potassium, Blood 6.1 mmol/L (3.5-5.5)
--- NOTE | 2023-01-17 14:30 | NUR ---
DR. CASILLAS CONSULTED ON PT EARLIER IN THE DAY. PT'S POTASSIUM LEVEL HAD INCREASED TO 6.1. IT WAS DECIDED BY DR. CASILLAS AND DR. HENDRICKSON TO PLACE DIALYSIS CATH AND START DIALYSIS TODAY. BICARB GIVEN FOR ACIDOSIS. S.O. UPDATED VIA PHONE BY DR. HENDRICKSON AND DR. CASILLAS.
--- NOTE | 2023-01-17 16:00 | NUR ---
MULTIMEDIA MANAGER TO BEDSIDE TO START DIALYSIS.
--- NOTE | 2023-01-17 18:16 | NUR ---
SUMMARY PT REMAINS UNRESPONSIVE ON THE VENTILATOR. ON PROPOFOL PT BECOMES ASYNCHRONOUS WITH THE VENTILATOR WHEN SEDATION IS LOWERED. DR. RAZO CAME IN AND TOOK THE DRESSING DOWN ON THE L BKA THEN REPLACED. DONOVAN DRAIN INTACT WITH SM AMT OF SEROSANG DRAINAGE. MOTTLED OVER BOTH KNEES AND MD'S AWARE. DR. CASILLAS CONSULTED TODAY. DECISION WAS MADE TO START DIALYSIS TODAY. LIJ TRIALYSIS CATH PLACED BY DR. HENDRICKSON. PT TOLERATED DIALYSIS WELL AND PRESSOR REQUIREMENT IS DECREASING. BICARB WAS GIVEN AFTER VBG WAS DRAWN. S.O. HAS BEEN UPDATED ON TODAY'S EVENTS.
--- NOTE | 2023-01-17 19:15 | NUR ---
ASSUMPTION OF CARE: RECEIVED REPORT FROM ZEFERINO LONG. PT INTUBATED AND SEDATED. SEDATION TURNED DOWN FOR ASSESSMENT. PT DOES NOT RESPOND TO PAINFUL STIMULI, NOT OPENING EYES TO VERBAL STIMULI OR FOLLOWING COMMANDS. PROPOFOL AT 20 MCG/KG/MIN FOR VENT COMPLIANCE. COUGH, GAG AND SWALLOW NOTED WITH SUCTIONING. AC/PC 15/8 FIO2 60%. SPO2 >95%. LEVOPHED TITRATED TO 6 MCG/MIN WITH VASO ON SB FOR MAP >65. ART LINE TO RIGHT WRIST CLEAN, DRY AND INTACT. CENTRAL LINE TO RIGHT IJ PATENT AND INFUSING. DIALYSIS CATHETER IN LEFT IJ, CLEAN DRY AND INTACT. OGT CLAMPED. NO BM YET. BRANCH, PATENT AND DRAINING TO GRAVITY. PIV'S LEFT AND RIGHT AC SALINE LOCKED. LEFT BKA DRESSING CLEAN, DRY AND INTACT. DONOVAN DRAIN SET TO GRAVITY SUCTION WITH VERY MINIMAL DRAINAGE. SEE SHIFT ASSESSMENT FOR FULL ASSESSMENT.
[2023-01-18] VITALS (13 sets, daily range): BP systolic 115–132; BP diastolic 54–62
[2023-01-18 04:41] LABS: Hematocrit 27.8 % (33.0-51.0); Hemoglobin 8.7 g/dL (11.5-16.0); Mean Corpuscular HGB 21.9 pg (26.0-34.0); Mean Corpuscular HGB Conc 31.3 g/dL (31.5-36.5); Mean Corpuscular Volume 70 fL (80-100); Mean Platelet Volume 10.5 fL (9.1-12.4); NRBC ABSOLUTE 1.57 K/mm3 (0.00-0.02); NRBC Auto 7.4 /100 WBC (0.0-0.2); Platelet Count 152 K/mm3 (150-400); RDW Coefficient Variation 17.9 % (11.7-14.2); RDW Standard Deviation 44.6 fL (35.1-46.3); Red Blood Cell Count 3.98 M/mm3 (3.80-5.20); White Blood Cell Count 21.36 K/mm3 (4.00-11.30)
[2023-01-18 05:02] LABS: Anion Gap 11 mmol/L (6-16); Blood Urea Nitrogen 52 mg/dL (8-24); Bun/Creatinine Ratio 14.2 (12.0-20.0); CO2, Blood 23 mmol/L (21-32); Calcium, Blood 7.4 mg/dL (8.5-10.1); Chloride, Blood 97 mmol/L (98-108); Creatinine, Blood 3.66 mg/dL (0.40-1.00); Glomerular Filtration Rate 15 (60-); Glucose, Blood 106 mg/dL (70-99); Phosphorus, Blood 6.9 mg/dL (2.5-4.9); Potassium, Blood 4.5 mmol/L (3.5-5.5); Sodium, Blood 131 mmol/L (136-145)
[2023-01-18 05:14] LABS: BAND PERCENT MAN 10 % (0-8); BASOPHILS PERCENT MAN 0 % (0-2); EOSINOPHILS PERCENT MAN 0 % (0-6); LYMPHOCYTES PERCENT MAN 8 % (21-46); MONOCYTES ABSOLUTE MAN 0.42 K/mm3 (0.16-1.47); MONOCYTES PERCENT MAN 2 % (4-13); NEUTROPHILS ABSOLUTE MAN 19.22 K/mm3 (1.96-9.15); SEG NEUTROPHILS PERCENT MAN 80 % (41-73); TOTAL CELLS COUNTED 100
--- NOTE | 2023-01-18 06:23 | NUR ---
SHIFT SUMMARY: NO ACUTE CHANGES T/O THE SHIFT. PT REMAINS INTUBATED AND SEDATED. NO RESPONSE TO PAINFUL OR VERBAL STIMULI. COUGH AND GAG REMAIN. SCANT SECRETIONS NOTED WITH SUCTIONING. VENT SETTINGS AC/PC RATE 15 PEEP 8 FIO2 60%. SPO2 >94%. PROPOFOL AT 20 MCG/KG/MIN FOR VENT COMPLIANCE. PUPILS REMAIN SLUGGISH BILATERALLY. LEVOPHED AT 8 MCG/MIN TITRATED TO MAINTAIN MAP >65. ART LINE TO RIGHT RADIAL, C/D/I. CENTRAL LINE TO RIGHT IJ, INFUSING C/D/I. LEFT IJ DIALYSIS CATH, C/D/I. NO BM T/O THE SHIFT. BRANCH REMAINS PATENT AND DRAINING TO GRAVITY. DONOVAN DRAIN TO LEFT LEG, SMALL AMOUNT OF SEROSANGINOUS DRAINAGE. LEFT BKA DRESSING C/D/I.
--- NOTE | 2023-01-18 08:45 | NUR ---
NOTED THIS AM WITH ASSESSMENT PT HAD AN UNUSED SPO2 PROBE ON L INDEX FINGER. REMOVED BY THIS RN AND FOUND BASE OF NAILBED HAS PURPLE DISCOLORATION AND FINGER IS RED UP TO FIRST KNUCKLE. WOUND PHOTOS TAKEN AND BROUGHT TO THE ATTENTION OF DR. KELLY WHO IS AT BEDSIDE. NO NEW ORDERS WILL MONITOR FOR WORSENING. SHAPE CARVER AT BEDSIDE PREPARING TO START.
--- NOTE | 2023-01-18 11:00 | NUR ---
PT TOLERATING DIALYSIS WELL. TITRATING LEVOPHED DOWN. DR. HENDRICKSON AT BEDSIDE, MADE AWARE OF L INDEX FINGER. TODAY PT HAS MINIMAL MOTTLING TO BILAT KNEES COMPARED TO YESTERDAY. R FOOT HAS STRONG PALPABLE PULSE, IS WARM TO THE TOUCH, AND CAP REFILL HAS IMPROVED COMPARED TO YESTERDAY. DONOVAN DRAIN L KNEE HAS SCANT AMT OF SEROSANG DRAINAGE. THIGH IS STILL REDDENED BUT STILL WITHIN MARKINGS.
--- NOTE | 2023-01-18 15:00 | NUR ---
DONOVAN DRAIN IS NOT HOLDING SUCTION LONGER THAN A FEW SECONDS. CALLED DR. RAZO WHO STATES IT IS OK, SHE WAS IN EARLIER TODAY AND NOTICED IT WELL.
--- NOTE | 2023-01-18 18:41 | NUR ---
SUMMARY PT INTUBATED AND SEDATED WITH PROPOFOL. SEDATION VACATION THIS AFTERNOON. PT LASTED A COUPLE HOURS BEFORE BECOMING RESTLESS. PT WAS AGRESSIVELY CHEWING ON ETT AND REACHING FOR ETT. ARMS ARE STRONG. DOES NOT FOLLOW COMMANDS BUT IS OPENING EYE'S SPONT AND WITHDRAWING FROM PAIN. RESTARTED PROPOFOL AT 10MCG/KG/MIN. PT REMAINS ON SPONTANEOUS SETTINGS ON THE VENT SINCE SEDATION VACATION AND IS TOLERATING WELL. L BKA DRESSING C/D/I. DONOVAN DRAIN WITH SM AMT OF SEROSANG DRAINAGE. DONOVAN DRAIN IS NOT HOLDING SUCTION FOR VERY LONG, DR. RAZO AWARE. STILL HAS REDNESS UP TO THIGH ON L LEG AND WARM TO TOUCH AND WITHIN MARKINGS. LEVOPHED TITRATED DOWN AND VASOPRESSIN REMAINS OFF. DIALYSIS TODAY AND PT TOLERATED WELL WITH FLUID REMOVAL. S.O. IN THIS AM AND UPDATED.
--- NOTE | 2023-01-18 20:30 | NUR ---
UPDATE: FAMILY AT THE BEDSIDE TO SEE PT. SIGNIFICANT OTHER AND PT SISTER UPDATED TO PLAN OF CARE.
--- NOTE | 2023-01-18 23:22 | NUR ---
ASSUMPTION OF CARE: RECEIVED REPORT FROM ZEFERINO LONG. PT INTUBATED AND SEDATED. VENT SETTINGS AC/PC RATE 16, PEEP 8, FIO2 50%. SPO2 >95%. MODERATE THIN SECRETIONS SUCTIONED. PT OPENS EYES TO VERBAL STIMULI AND WITHDRAWS FROM PAIN, NOT FOLLOWING COMMANDS. PT RESTLESS AND APPEARS AGITATED AND TRIES TO PULL AT ET TUBE. PROPOFOL INCREASED TO 15 MCG/KG/MIN FOR VENT COMPLIANCE AND COMFORT. THERMOSTATIC CONTROLS SUPERVISOR CONTINUOUS SR WITH HR 80'S. LEVOPHED AT 4 MCG/MIN FOR MAP >65. TUBE FEED AT GOAL THROUGH OGT. CENTRAL LINE TO RIGHT IJ, PATENT AND INFUSING. DIALYSIS CATH TO LEFT IJ, SALINE LOCKED. PIV TO LEFT AC C/D/I. RIGHT RADIAL ART LINE C/D/I. IgG INFUSING AT 29 ML/HR AT SHIFT CHANGE, INCREASED DOSE TO 100 ML/HR, PT TOLERATING WELL. SEE SHIFT ASSESSMENT FOR FULL ASSESSMENT.
[2023-01-19] VITALS (49 sets, daily range): BP systolic 85–125; BP diastolic 50–84
[2023-01-19 05:03] LABS: Hematocrit 28.3 % (33.0-51.0); Hemoglobin 9.1 g/dL (11.5-16.0); Mean Corpuscular HGB 21.8 pg (26.0-34.0); Mean Corpuscular HGB Conc 32.2 g/dL (31.5-36.5); Mean Corpuscular Volume 68 fL (80-100); Mean Platelet Volume 10.1 fL (9.1-12.4); NRBC ABSOLUTE 1.26 K/mm3 (0.00-0.02); NRBC Auto 6.2 /100 WBC (0.0-0.2); Platelet Count 145 K/mm3 (150-400); RDW Coefficient Variation 17.9 % (11.7-14.2); RDW Standard Deviation 42.9 fL (35.1-46.3); Red Blood Cell Count 4.18 M/mm3 (3.80-5.20); White Blood Cell Count 20.41 K/mm3 (4.00-11.30)
[2023-01-19 05:21] LABS: Albumin, Blood 2.7 g/dL (3.4-5.0); Anion Gap 11 mmol/L (6-16); Blood Urea Nitrogen 54 mg/dL (8-24); Bun/Creatinine Ratio 16.1 (12.0-20.0); CO2, Blood 25 mmol/L (21-32); Calcium, Blood 7.4 mg/dL (8.5-10.1); Chloride, Blood 95 mmol/L (98-108); Creatinine, Blood 3.36 mg/dL (0.40-1.00); Glomerular Filtration Rate 16 (60-); Glucose, Blood 119 mg/dL (70-99); Iron Serum 19 ug/dL (50-170); Percent Saturation 10.8 % (15.0-50.0); Phosphorus, Blood 5.9 mg/dL (2.5-4.9); Potassium, Blood 3.9 mmol/L (3.5-5.5); Sodium, Blood 131 mmol/L (136-145); Total Iron Binding Capacity 176 ug/dL (250-450)
--- NOTE | 2023-01-19 06:06 | NUR ---
SHIFT SUMMARY: NO ACUTE CHANGES T/O THE SHIFT. PT CONTINUES TO REMAIN INTUBATED AND SEDATED. VENT SETTINGS AC/PC 16/7/60%. SPO2 >90%. PT DESATS ON OCCASION WITH MOVEMENT. SCANT, THICK SECRETIONS NOTED WITH SUCTIONING. PROPOFOL AT 15 MCG/KG/MIN. PT APPEARED RESTLESS AND AGITATED WITH STIMULATION, MEDICATED WITH FENTANYL PER MAR WITH RELIEF. OPENS EYES TO VERBAL STIMULI AND WITHDRAWS TO PAIN. DOES NOT FOLLOW COMMANDS AND FREQUENTLY REACHES FOR THE ET TUBE. LEVOPHED DRIP AT 6 MCG/MIN FOR MAP >65. ART LINE REMAINS IN PLACE, DRESSING C/D/I. CENTRAL LINE TO RIGHT IJ, INFUSING. DIALYSIS CATH TO LEFT IJ, C/D/I. LEFT THIGH REMAINS WARM TO THE TOUCH, REDNESS OUTLINE WITH SKIN MARKER, DOES NOT APPEAR TO BE WORSENING FROM INITIAL ASSESSMENT. STUMP SOCK IN PLACE, CLEAN AND DRY. DONOVAN DRAIN DOES NOT SUCTION, NO DRAINAGE NOTED. TUBE FEED REMAINS AT GOAL THROUGH OGT. BRANCH DRAINING TO GRAVITY. NO BM THIS SHIFT.
--- NOTE | 2023-01-19 07:00 | NUR ---
ASSUMPTION OF CARE: ASSUMED CARE OF PATIENT WITH [place]. AT BEDSIDE WITH NIGHT RN. PATIENT RESTLESS IN BED. RECEIVED FENTANYL PRN WHICH RESULTED IN CPOT OF 0. PATIENT APPEARS COMFORTABLE AND IS TOLERATING VENT. VENT SETTINGS AC/PC //60%. SPO2 90-92%. ARTERIAL LINE IN PLACE WITH SBPS IN THE HIGH 90S. MAPS IN LOW TO MID-60S. TITRATED LEVOPHED TO 7 MCG/KG/MIN. BRANCH CATHETER IN PLACE AND DRAINING FREELY. DONOVAN DRAIN WITH MINIMAL SEROUS-SANGINOUS DRAINAGE. REDNESS OF LEFT THIGH IS BELOW THE SKIN MARKING THE ORIGINAL EDGE OF THE REDNESS.
--- NOTE | 2023-01-19 09:23 | NUR ---
SPONTANEOUS BREATHING TRIAL: BROUGHT PROPOFOL DOWN TO 10 MCG/KG/MIN AT 08:22. RT INITIATED SPONTANEOUS BREATHING TRIAL. PATIENT HAD ADEQUATE VOLUMES (350-900 MLS) AND RR (12-20). PATIENT SHOWING SIGNS OF AGITATION/PAIN DURING TRIAL. PATIENT RECEIVED 24 MCG OF FENTANLY PER PRNS ORDERS. PATIENT NO LONGER SHOWING SIGNS OF PAIN. HOWEVER, RR DECREASED TO 8 AND ETCO2 UP TO 36. NOTIFIED RT AND PATIENT BACK TO AC/PC ///50%. SPONTANEOUS TRIAL ENDED AT 09:20.
[2023-01-19 11:41] LABS: Base Excess Venous -0.5 mmol/L; Bicarbonate Venous 23.8 mmol/L (24.0-30.0); PCO2 Venous 41.5 mmHg (38-42); pH Blood Venous 7.38 (7.34-7.37)
--- NOTE | 2023-01-19 18:16 | NUR ---
SHIFT SUMMARY: NEURO: PATIENT WITHDREW TO PAIN THROUGHOUT THE SHIFT. EVEN WITH LOWER LEVELS OF SEDATION (PROPOFOL AT 10 MCG/KG/MIN), PATIENT DID NOT RESPOND TO VERBAL STIMULI. PROPOFOL BETWEEN 15-20 MCG/KG/MIN THROUGHOUT THE SHIFT. PATIENT TOLERATED WELL. UTILIZED PRN FENTANYL TO ASSIST WITH PAIN CONTROL - THIS ASSISTED PATIENT WITH TOLERATING VENT AND BEING IN THE CHAIR FOR MULTIPLE HOURS THIS AFTERNOON. RESPIRATORY: PATIENT DID HAVE A SPONTANEOUS BREATHING TRIAL THIS AM (SEE NURSE'S NOTE). PATIENT HAS INCREASING INTOLERANCE OF THE VENT WITH PAIN. PRN FENTANYL USED WITH GOOD PATIENT RESPONSE. PER ORDERS, VENT ADVANCED 3 CM BY RT. ETT NOW AT 24.0 CM AT THE TEETH. VENT SETTINGS AC/VC 16/420/8/50%. SPO2 93-98%. LUNG SOUNDS DIMINISHED IN THE BASES. CARDIAC: LEVOPHED GTT CONTINUES TO MAINTAIN MAPS >65. PATIENT ENDED THE SHIFT AT 5 MCG/MIN. SBPS CURRENTLY IN THE 90S. PATIENT SINUS TO SINUS TACHY WITH A WIDE QRS NOTED. BILATERAL RADIAL AND RIGHT PEDIS PULSE PALPABLE. PATIENT CONTINUES TO HAVE DEPENDENT EDEMA IN LIMBS. ARMS AND LEGS ELEVATED THROUGHOUT THE SHIFT. GI/: NEW ORDERS FOR TUBE FEED STARTED. PATIENT STARTED AT 25 MLS/HR OF JEVITY 1.2 PER ORDERS AT 14:45. BOWEL SOUNDS PRESENT. BOWEL CARE STARTED TODAY. BRANCH CATHETER IN PLACE AND DRAINING FREELY. URINE OUTPUT INCREASED THE DAY PROGRESSED. URINE IS A DARK YELLOW/XIONG COLOR. INTEGUMENTARY: LEFT THIGH MARKED. THIGH PINKER AT THE END OF SHIFT AND AFTER BEING IN THE CHAIR. DR. RAZO AT BEDSIDE AND AWARE. DR. RAZO ASSESSED AND REMOVED THE DONOVAN DRAIN FROM THE LEFT KNEE. SHE REDRESSED THE WOUND. PSYCHSOCIAL: PATIENTS FAMILY AND FRIENDS AT BEDSIDE DURING THE SHIFT. THEY ARE APPRECIATIVE OF CARE AND SUPPORTIVE OF THE PATIENT.
[2023-01-20] VITALS (72 sets, daily range): BP systolic 93–159; BP diastolic 57–121
[2023-01-20 00:07] LABS: HBSAG SCREEN Negative (Negative); HCV AB Non Reactive (Non Reactive); HEP A AB, IGM Negative (Negative); HEP B CORE AB, IGM Negative (Negative)
[2023-01-20 03:26] LABS: BASOPHILS ABSOLUTE AUTO 0.03 K/mm3 (0.00-0.23); BASOPHILS PERCENT AUTO 0 % (0-2); EOSINOPHILS ABSOLUTE AUTO 0.02 K/mm3 (0.00-0.68); EOSINOPHILS PERCENT AUTO 0 % (0-6); Hematocrit 25.5 % (33.0-51.0); Hemoglobin 8.3 g/dL (11.5-16.0); IMMATURE GRAN ABSOLUTE AUTO 0.65 K/mm3 (0.00-0.10); IMMATURE GRAN PERCENT AUTO 4 % (0-1); LYMPHOCYTES ABSOLUTE AUTO 1.62 K/mm3 (0.84-5.20); LYMPHOCYTES PERCENT AUTO 11 % (21-46); MONOCYTES ABSOLUTE AUTO 0.61 K/mm3 (0.16-1.47); MONOCYTES PERCENT AUTO 4 % (4-13); Mean Corpuscular HGB Conc 32.5 g/dL (31.5-36.5); Mean Corpuscular Volume 68 fL (80-100); Mean Platelet Volume 10.8 fL (9.1-12.4); NEUTROPHILS ABSOLUTE AUTO 12.03 K/mm3 (1.96-9.15); NEUTROPHILS PERCENT AUTO 81 % (41-73); NRBC ABSOLUTE 0.85 K/mm3 (0.00-0.02); NRBC Auto 5.7 /100 WBC (0.0-0.2); Platelet Count 139 K/mm3 (150-400); RDW Coefficient Variation 17.8 % (11.7-14.2); Red Blood Cell Count 3.78 M/mm3 (3.80-5.20); White Blood Cell Count 14.96 K/mm3 (4.00-11.30)
[2023-01-20 03:44] LABS: Albumin, Blood 2.5 g/dL (3.4-5.0); Albumin/Globulin Ratio 0.5 (0.8-1.8); Bilirubin, Total 0.8 mg/dL (0.1-1.0); Bun/Creatinine Ratio 22.3 (12.0-20.0); Calcium, Blood 7.1 mg/dL (8.5-10.1); Creatinine, Blood 3.19 mg/dL (0.40-1.00); Globulin, Blood 5.5 g/dL (2.2-4.0); Magnesium, Blood 2.3 mg/dL (1.6-2.4); Phosphorus, Blood 6.9 mg/dL (2.5-4.9); Potassium, Blood 3.8 mmol/L (3.5-5.5)
--- NOTE | 2023-01-20 06:26 | NUR ---
SHIFT SUMMARY PT REMAINS SEDATED W/PROPOFOL, PRN FENTANYL GIVEN ORDERED. SR, BP SUPPORTED WITH LEVOPHED. VENT SETTINGS UNCHANGED, MODERATE AMOUNT OF THICK SECRETIONS SUCTIONED FROM ETT. OGT WITH TUBE FEEDING INFUSING. RATE ADVANCED TO 35ML/HR ORDERED, CONTINUE TO INCREASE EVERY 8 HOURS UNTIL GOAL REACHED. BRANCH PATENT AND DRAINING CLEAR YELLOW URINE. PT HAD 2400ML UO THIS SHIFT. SKIN UNCHANGED. CHG BATH GIVEN, PT IS ON MENSES, SMALL AMOUNT OF MENSTURAL BLOOD NOTED ON PAD. SKIN UNCHANGED W/REDNESS NOTED TO LEFT STUMP. CENTRAL LINE TO RIGHT IJ, DSG C/D/I. TRIALYSIS CATHETER TO LEFT IJ, DSG C/D/I. NO FAMILY AT BEDSIDE. POC ONGOING.
--- NOTE | 2023-01-20 07:30 | NUR ---
ASSUMED CARE CARE WAS ASSUMED OF PT AT 0700. PT UNRESPONSIVE, NOT RESPONDING TO PAINFUL OR VERBAL STIMULI. PROPOFOL GTT INFUSING, SEE FLOWSHEET. PT INTUBATED AND SEDATED, AC/VC 16/420/8/45%. PT TOLERATING WELL, O2 SATS > 92%. BILATERAL WRIST RESTRAINTS IN PLACE FOR SAFETY. CARDIAC MONITORING REFLECTS SINUS TACH, HR 100s-110s. MAP > 65, LEVOPHED INFUSING, SEE FLOWSHEET. BRANCH PATENT AND DRAINING TO GRAVITY. TF INFUSING THROUGH OG. BANDAGE TO LEFT BKA C/D/I/. REDNESS/WARMTH NOTED AT PT'S RLE. PEDAL PULSES PALPABLE TO PT'S RLE.
--- NOTE | 2023-01-20 13:47 | NUR ---
CARE UPDATE SBT WAS STARTED AROUND 0845 WITH PT. SEE FLOWSHEET FOR PROPOFOL GTT TITRATIONS. TF PUT ON SB. PT TOLERATED WELL, WOULD OCCASIONALLY BECOME AGITATED AND WAS MEDICATED FOR PAIN PER EMAR. O2 SATS REMAINED > 92%. PT ABLE TO OPEN EYES ON COMMAND. PT EXTUBATED AT 1330, DR. VILLALOBOS AT BEDSIDE WITH RT. PT PUT ON 6 L N/C, TOLERATING WELL. O2 SATS > 95%. VS STABLE. BILATERAL WRIST RESTRAINTS REMOVED WITH EXTUBATION.
--- NOTE | 2023-01-20 16:11 | NUR ---
Spiritual Care Visit. Pt. is awake in bed, and seems to display evidence of discomfort and is unable to communicate clearly. Seek to help Pt. feel comforted by asking guided questions. Pt. did not seem to object to prayer. Prayed with Pt. Will continue to be available to Pt. and her SO.
--- NOTE | 2023-01-20 18:09 | NUR ---
SHIFT SUMMARY PT HAS BECOME INCREASINGLY MORE RESPONSIVE T/O THE SHIFT. PT CURRENTLY ABLE TO ANSWER SOME QUESTIONS, BUT IS UNCLEAR WHAT SPECIFIC NEEDS SHE HAS HAD. PT MEDICATED FOR PAIN PER EMAR T/O SHIFT. PT IS DIFFICULT TO CONSOLE AND YELLS OUT FOR HELP WHEN STAFF ARE IN OR OUT OF THE ROOM. PT WAS EXTUBATED TODAY, SEE NURSE NOTE. PT ON 6 L N/C AT THIS TIME, O2 SATS > 94%. CARDIAC MONITORING HAS REFLECTED SINUS TACH THIS SHIFT. LEVOPHED WAS PUT ON SB THIS MORNING AND NOT RESTARTED. HR 100s-110s. BRANCH PATENT AND DRAINING TO GRAVITY. OG TUBE REMOVED WITH EXTUBATION. TMAX THIS SHIFT WAS 102.5. PT MEDICATED PER EMAR AND ICE PACKS PLACED. TEMPERATURE HAS SLOWLY DECREASED THIS SHIFT.
--- NOTE | 2023-01-20 22:12 | NUR ---
PT ALERT AND ORIENTED TO PERSON AND PLACE, ABLE TO ANSWER MOST QUESTIONS APPROPRIATELY. PT HAS BEEN ASKING FOR ICE CUBES CONTINUALLY THIS SHIFT, BEDSIDE SWALLOW EVALUATION PERFORMED, PT TOLERATE WELL. SMALL AMOUNTS OF ICE CHIPS AND WATER GIVEN TO PATIENT, PT EDUCATED THAT WE NEED TO RE-INTRODUCE FLUIDS SLOWLY, SHE KEPT ASKING FOR MORE AND MORE. PT'S HR ST 104, PT DENIES CHEST PAIN/PRESSURE. PT ON 6L HIGH FLOW AND MAINTAINING 02 SATURATION ABOVE 92%, PT DENIES SOB. BRANCH CATHETER IN PLACE DRAINING PAIGE/YELLOW URINE WITH GRAVITY. RIGHT IJ PATENT, FLUSHED, AND PORTS NOT INFUSING SALINE LOCKED, ONE PORT IS INFUSING PER EMAR, DRESSING C/D/I. TRIALYSIS DRESSING C/D/I. L BKA DRESSING C/D/I. PT IS SLEEPING WITH TV ON IN ROOM, CALL LIGHT WITHIN REACH.
[2023-01-20 22:19] LABS: Albumin, Blood 2.7 g/dL (3.4-5.0); Albumin/Globulin Ratio 0.5 (0.8-1.8); Bilirubin, Total 1.3 mg/dL (0.1-1.0); Bun/Creatinine Ratio 31.8 (12.0-20.0); Calcium, Blood 7.9 mg/dL (8.5-10.1); Creatinine, Blood 2.14 mg/dL (0.40-1.00); Globulin, Blood 5.9 g/dL (2.2-4.0); Potassium, Blood 3.8 mmol/L (3.5-5.5); Total Protein, Blood 8.6 g/dL (6.4-8.2)
[2023-01-21] VITALS (24 sets, daily range): BP systolic 83–152; BP diastolic 51–105
[2023-01-21 04:30] LABS: BASOPHILS ABSOLUTE AUTO 0.03 K/mm3 (0.00-0.23); BASOPHILS PERCENT AUTO 0 % (0-2); EOSINOPHILS ABSOLUTE AUTO 0.02 K/mm3 (0.00-0.68); EOSINOPHILS PERCENT AUTO 0 % (0-6); Hematocrit 26.8 % (33.0-51.0); Hemoglobin 8.5 g/dL (11.5-16.0); IMMATURE GRAN ABSOLUTE AUTO 0.45 K/mm3 (0.00-0.10); IMMATURE GRAN PERCENT AUTO 3 % (0-1); LYMPHOCYTES ABSOLUTE AUTO 1.54 K/mm3 (0.84-5.20); LYMPHOCYTES PERCENT AUTO 12 % (21-46); MONOCYTES PERCENT AUTO 5 % (4-13); Mean Corpuscular HGB 21.7 pg (26.0-34.0); Mean Corpuscular HGB Conc 31.7 g/dL (31.5-36.5); Mean Corpuscular Volume 69 fL (80-100); NEUTROPHILS ABSOLUTE AUTO 10.63 K/mm3 (1.96-9.15); NEUTROPHILS PERCENT AUTO 80 % (41-73); NRBC ABSOLUTE 0.56 K/mm3 (0.00-0.02); NRBC Auto 4.2 /100 WBC (0.0-0.2); Platelet Count 126 K/mm3 (150-400); RDW Coefficient Variation 18.2 % (11.7-14.2); RDW Standard Deviation 43.5 fL (35.1-46.3); Red Blood Cell Count 3.91 M/mm3 (3.80-5.20); White Blood Cell Count 13.37 K/mm3 (4.00-11.30)
[2023-01-21 04:41] LABS: Albumin, Blood 2.7 g/dL (3.4-5.0); Albumin/Globulin Ratio 0.5 (0.8-1.8); Bilirubin, Total 1.4 mg/dL (0.1-1.0); Bun/Creatinine Ratio 37.7 (12.0-20.0); Creatinine, Blood 1.75 mg/dL (0.40-1.00); Globulin, Blood 5.8 g/dL (2.2-4.0); Phosphorus, Blood 5.5 mg/dL (2.5-4.9); Potassium, Blood 3.9 mmol/L (3.5-5.5); Total Protein, Blood 8.5 g/dL (6.4-8.2)
--- NOTE | 2023-01-21 05:44 | NUR ---
SHIFT SUMMARY PT CONTINUES TO BE ALERT AND ORIENTED TO PERSON AND PLACE, SHE HAS STARTED TO REMEMBER THAT SHE HAD A L BKA. SHE ANSWERS MOST QUESTIONS APPROPRIATELY. SHE REPEATS CERTAIN PHRASES OVER AND OVER. PT CONTINUES TO ASK FOR ICE CHIPS FREQUENTLY. PTS HR ST 106, PT DENIES CHEST PAIN/PRESSURE. SHE IS ON 6L NC AND MAINTAINING 02 SATURATION ABOVE 92%, SHE DENIES SOB. BRANCH CATHETER CONTINUES TO DRAIN YELLOW URINE WITH GRAVITY. RIGHT IJ PATENT, FLUSHED, AND PORTS NOT INFUSING ARE SALINE LOCKED, ONE PORT INFUSING, DRESSING C/D/I. TRIALYSIS DRESSING STILL C/D/I. L BKA DRESSING STILL C/D/I. PT HAS STARTED TO SAY THAT HER L FOOT THAT WAS AMPUTATED IS CAUSING HER PAIN. SHE IS ABLE TO HOLD CUP OF ICE CHIPS WHILE I FEED HER THEM, WITH OCCASIONAL REMINDERS TO KEEP THE CUP UP RIGHT. SHE HAS BEEN UP THE MAJORITY OF THE NIGHT, SHE WOULD SLEEP FOR ABOUT 20 MINUTES AT A TIME. SHE CONTINUALLY YELLED FOR SOMEONE TO GO INTO HER ROOM TO FEED HER ICE CHIPS AND WOULD APOLOGIZE FOR YELLING WHEN SOMEONE ENTERED THE ROOM. SHE FREQUENTLY REQUESTS TO BE REPOSITIONED EVEN AFTER JUST BEING REPOSITIONED. SHE HAS BEEN TURNED AT LEAST EVERY TWO HOURS THROUGHOUT SHIFT. PT IS RESTING IN ROOM, CALL LIGHT WITHIN REACH.
--- NOTE | 2023-01-21 11:38 | NUR ---
Am note Pt alert, oriented to self and place, unsure of date, states Ronan is president. Pt calling out for help, requesting ice chips, not using call light. Minimal fine motor, bilateral weak. Pt reporting pain to lle, medicated per eamr. Pt breathing appeared labored at times, spo2 >90% on 8l o2 via nc, titrated down to 7l o2 via nc. Bloody sputum noted this am, aware. Abd soft nontender, +bt t/o. TETEKA, Dr Chao at bedside dressing changed, no new orders for dressing changes, Dr Chao to changes dressing. Mottling noted to ble. Edema t/o. Tele sinus tach, bp stable. Other vss. No other acute changes. Will continue to monitor.
--- NOTE | 2023-01-21 16:17 | NUR ---
INTUBATION: Dr. Kendrick, RTs and RNs at bedside prepping for intubation. 1621: 20 mg etomidate IV push 1622: 80 mg rocuronium IV push 1623: intubation with 7.5 ET tube, 23 cm at teeth, +ETCO2 color change, equal bilateral breath sounds
[2023-01-21 16:31] LABS: Magnesium, Blood 2.1 mg/dL (1.6-2.4)
[2023-01-21 16:39] LABS: Albumin, Blood 2.9 g/dL (3.4-5.0); Albumin/Globulin Ratio 0.5 (0.8-1.8); Bilirubin, Total 1.9 mg/dL (0.1-1.0); Bun/Creatinine Ratio 39.6 (12.0-20.0); Calcium, Blood 8.3 mg/dL (8.5-10.1); Creatinine, Blood 1.69 mg/dL (0.40-1.00); Globulin, Blood 6.2 g/dL (2.2-4.0); Phosphorus, Blood 6.9 mg/dL (2.5-4.9); Potassium, Blood 4.9 mmol/L (3.5-5.5); Total Protein, Blood 9.1 g/dL (6.4-8.2)
[2023-01-21 16:45] LABS: International Normalized Ratio 2.24; Prothrombin Time Results 22.5 Sec (9.7-11.5)
[2023-01-21 17:08] LABS: D-Dimer, Quantitative >35.20 mg/L FEU (0.00-0.52); Fibrinogen 284 mg/dL (170-430)
[2023-01-21 17:10] LABS: PCO2 Arterial 37.3 mmHg (35-45); PO2 Arterial 117 mmHg (80-100)
[2023-01-21 17:27] LABS: BASOPHILS ABSOLUTE AUTO 0.04 K/mm3 (0.00-0.23); BASOPHILS PERCENT AUTO 0 % (0-2); EOSINOPHILS PERCENT AUTO 0 % (0-6); Hematocrit 27.9 % (33.0-51.0); Hemoglobin 8.4 g/dL (11.5-16.0); IMMATURE GRAN ABSOLUTE AUTO 0.76 K/mm3 (0.00-0.10); IMMATURE GRAN PERCENT AUTO 4 % (0-1); LYMPHOCYTES ABSOLUTE AUTO 1.23 K/mm3 (0.84-5.20); LYMPHOCYTES PERCENT AUTO 7 % (21-46); MONOCYTES ABSOLUTE AUTO 0.62 K/mm3 (0.16-1.47); MONOCYTES PERCENT AUTO 3 % (4-13); Mean Corpuscular HGB 21.8 pg (26.0-34.0); Mean Corpuscular HGB Conc 30.1 g/dL (31.5-36.5); Mean Corpuscular Volume 73 fL (80-100); NEUTROPHILS ABSOLUTE AUTO 16.05 K/mm3 (1.96-9.15); NEUTROPHILS PERCENT AUTO 86 % (41-73); NRBC ABSOLUTE 1.07 K/mm3 (0.00-0.02); NRBC Auto 5.7 /100 WBC (0.0-0.2); Platelet Count 119 K/mm3 (150-400); RDW Coefficient Variation 19.2 % (11.7-14.2); Red Blood Cell Count 3.85 M/mm3 (3.80-5.20)
[2023-01-21 17:33] LABS: Mean Platelet Volume 11.9 fL (9.1-12.4)
--- NOTE | 2023-01-21 17:37 | NUR ---
LATE NOTE Earlier in the day, family and friends attempting to give pt ice chips with lying back in bed and gave sips of water, educated family and friends on sitting up all the way and ice chips only. This afternoon, pt's temp and resp rate trending up. Noted increased aggitation when famil/friends not present. notified of elevated temp. New orders for po tylenol. While pt working with PT, at approx 1400, noted worsening/darkening mottling, and darkening of toes to rle. worsening resp rate 30-40's, ls coarse to upper lobes and increased labor breathing. Pt appears more lethargic. Notified Dr Allen, to [facility] to assess pt. Plans to discuss case with Dr Kendrick. 1500: Dr Kendrick and Dr Allen at bedside, with ultrasound. New orders for additional labs, ekg, lasix and xray. Labs sent; ekg compelted and reviewed by , lasix given. Monitoring. 1600- No chagnes in resp status, plans to intubate. 1623 - pt intubated 1640- Critical labs trop 739, glucose 37 New orders for dextrose, delay coming from pharmacy; placed OG and 180cc orange juice given while dextrose being hung. Recheck cbg 199. Xray ordered for intubation and og placement. Will continue to monitor.
[2023-01-21 17:45] LABS: D-Dimer, Quantitative >35.20 mg/L FEU (0.00-0.52); Fibrinogen 260 mg/dL (170-430); International Normalized Ratio 2.25; Prothrombin Time Results 22.6 Sec (9.7-11.5)
[2023-01-21 17:54] LABS: Albumin, Blood 2.8 g/dL (3.4-5.0); Albumin/Globulin Ratio 0.5 (0.8-1.8); Bilirubin, Total 1.9 mg/dL (0.1-1.0); Bun/Creatinine Ratio 41.3 (12.0-20.0); Calcium, Blood 8.3 mg/dL (8.5-10.1); Creatinine, Blood 1.72 mg/dL (0.40-1.00); Potassium, Blood 4.9 mmol/L (3.5-5.5); Total Protein, Blood 8.8 g/dL (6.4-8.2)
--- NOTE | 2023-01-21 18:50 | NUR ---
New order for lr 500/hr for [address] Kendrick of from of of CBG from 199 to 94; new orders for lr at 250 for 1 bag, and d5 1/2 ns at 50. Check CBG q1. RLE continues to be mottled, the purple/redness to toes improved with elevation. New order for lactic acid and VBG ran as "mixed" or as ABG. Will continue to monitor.
[2023-01-21 19:28] LABS: Base Excess Venous -3.8 mmol/L; PCO2 Venous 42.2 mmHg (38-42); PO2 Venous 41.5 mmHg (38-42); pH Blood Venous 7.33 (7.34-7.37)
[2023-01-21 19:46] LABS: Source, Urine Foley catheter
[2023-01-21 19:52] LABS: Appearance, Urine Hazy (Clear); Bilirubin, Urine Neg (Neg); Blood, Urine 5+ (Neg); Color, Urine Yellow (P-Yellow); Glucose Qualitative, Urine Neg (Neg); Ketones, Urine Neg (Neg); Leukocyte Esterase, Urine Neg (Neg); Nitrite, Urine Neg (Neg); Protein, Urine 3+ (Neg); Specific Gravity, Urine 1.025 (1.003-1.022); Urobilinogen, Urine NORM (Normal)
[2023-01-21 20:03] LABS: Bacteria Many /hpf; Hyaline Casts 0-2 /lpf (0-2); Red Blood Cells, Urine 25-50 /hpf (0-2); Squamous Epithelial Cells Few /hpf (Few)
[2023-01-22] VITALS (42 sets, daily range): BP systolic 91–110; BP diastolic 55–67
[2023-01-22 00:02] LABS: Influenza A, PCR NEGATIVE (NEGATIVE); Influenza B, PCR NEGATIVE (NEGATIVE); Resp Syncytial Virus, PCR NEGATIVE (NEGATIVE); SARS-Cov-2 (COVID-19) PCR, MMC NEGATIVE (NEGATIVE)
[2023-01-22 03:50] LABS: Acinetobacter baumannii DNA Not Detected copy/mL (NOT DETECT); Adenovirus DNA Not Detected (NOT DETECT); Chlamydia pneumonia Not Detected (NOT DETECT); Enterobacter cloacae DNA Not Detected copy/mL (NOT DETECT); Escherichia coli DNA Not Detected copy/mL (NOT DETECT); Haemophilus influenzae DNA Not Detected copy/mL (NOT DETECT); Human Coronavirus RNA Not Detected (NOT DETECT); Human Metapneumovirus RNA Not Detected (NOT DETECT); Influenza virus A RNA Not Detected (NOT DETECT); Influenza virus B RNA Not Detected (NOT DETECT); Klebsiella aerogenes DNA Not Detected copy/mL (NOT DETECT); Klebsiella oxytoca DNA Not Detected copy/mL (NOT DETECT); Klebsiella pneumoniae DNA Not Detected copy/mL (NOT DETECT); Legionella pneumophila Not Detected (NOT DETECT); Moraxella catarrhalis DNA Not Detected copy/mL (NOT DETECT); Mycoplasma pneumoniae Not Detected (NOT DETECT); Parainfluenza virus RNA Not Detected (NOT DETECT); Proteus sp DNA Not Detected copy/mL (NOT DETECT); Pseudomonas aeruginosa DNA Not Detected copy/mL (NOT DETECT); Respiratory syncytial Vir RNA Not Detected (NOT DETECT); Rhinovirus+Enterovirus RNA Not Detected (NOT DETECT); Serratia marcescens DNA Not Detected copy/mL (NOT DETECT); Staphylococcus aureus DNA Not Detected copy/mL (NOT DETECT); Streptococcus agalactiae DNA Not Detected copy/mL (NOT DETECT); Streptococcus pneumoniae DNA Not Detected copy/mL (NOT DETECT); Streptococcus pyogenes DNA Not Detected copy/mL (NOT DETECT)
[2023-01-22 04:38] LABS: BASOPHILS ABSOLUTE AUTO 0.03 K/mm3 (0.00-0.23); BASOPHILS PERCENT AUTO 0 % (0-2); EOSINOPHILS ABSOLUTE AUTO 0.16 K/mm3 (0.00-0.68); EOSINOPHILS PERCENT AUTO 1 % (0-6); Hematocrit 23.3 % (33.0-51.0); Hemoglobin 7.4 g/dL (11.5-16.0); IMMATURE GRAN ABSOLUTE AUTO 0.32 K/mm3 (0.00-0.10); IMMATURE GRAN PERCENT AUTO 2 % (0-1); LYMPHOCYTES ABSOLUTE AUTO 1.41 K/mm3 (0.84-5.20); LYMPHOCYTES PERCENT AUTO 10 % (21-46); MONOCYTES ABSOLUTE AUTO 0.45 K/mm3 (0.16-1.47); MONOCYTES PERCENT AUTO 3 % (4-13); Mean Corpuscular HGB 21.8 pg (26.0-34.0); Mean Corpuscular HGB Conc 31.8 g/dL (31.5-36.5); Mean Corpuscular Volume 69 fL (80-100); NEUTROPHILS PERCENT AUTO 84 % (41-73); NRBC ABSOLUTE 0.58 K/mm3 (0.00-0.02); NRBC Auto 3.9 /100 WBC (0.0-0.2); Platelet Count 124 K/mm3 (150-400); RDW Standard Deviation 42.7 fL (35.1-46.3); Red Blood Cell Count 3.39 M/mm3 (3.80-5.20); White Blood Cell Count 14.87 K/mm3 (4.00-11.30)
[2023-01-22 04:58] LABS: Magnesium, Blood 2.2 mg/dL (1.6-2.4)
[2023-01-22 05:25] LABS: Albumin, Blood 2.5 g/dL (3.4-5.0); Albumin/Globulin Ratio 0.5 (0.8-1.8); Bilirubin, Total 1.5 mg/dL (0.1-1.0); Calcium, Blood 7.7 mg/dL (8.5-10.1); Creatinine, Blood 1.74 mg/dL (0.40-1.00); Globulin, Blood 5.4 g/dL (2.2-4.0); Phosphorus, Blood 5.7 mg/dL (2.5-4.9); Potassium, Blood 3.6 mmol/L (3.5-5.5); Total Protein, Blood 7.9 g/dL (6.4-8.2)
--- NOTE | 2023-01-22 06:42 | NUR ---
PATIENT OPENS EYES TO PAIN, NOT FOLLOWING COMMANDS. PROPOFOL AT 25 MCG/KG/MIN. SR WITH IMPROVING BP. MAPS NOW >70 AFTER 62-65 TO START SHIFT. TMAX 101.3, NOW IMPROVING TO 98.7. 24/420/10/60%, BLOODY SECRETIONS. OGT CLAMPED. BRANCH IN PLACE WITH ADEQUATE URINE OUTPUT. DIALYSIS CATHETER REMOVED. D10 @ 20 ML/HR. BG BETWEEN 90-120.
[2023-01-22 14:28] LABS: Hematocrit 24.2 % (33.0-51.0); Hemoglobin 7.8 g/dL (11.5-16.0)
--- NOTE | 2023-01-22 18:25 | NUR ---
SUMMARY PT INTUBATED AND SEDATED WITH PROPOFOL. PT WILL REACH UP WITH HANDS TOWARDS ETT AT TIMES. WITHDRAWS FROM NOXIOUS STIMULUS. L LEG IS RED UP TO HIP AND A LITTLE ON ABD. DR. GRAY AND DR. RAZO AWARE. R FOOT IS SWOLLEN BUT HAS PALPABLE PULSES AND WARM. NO MOTTLING TODAY. DR. AQUINO IN TO SEE PT. CVP 9. REMAINS ON D10 BUT BLOOD SUGARS ARE STABLE. NO ACUTE CHANGES.
--- NOTE | 2023-01-22 19:00 | NUR ---
ASSUMED CARE ASSUMED CARE OF PATIENT. REMAINS INTUBATED- AC/VC 24, TV 420, PEEP 10, FIO2 30%. RR 24. SEDATED WITH PROPOFOL AT 25MCG/KG/MIN. BILATERAL SOFT WRIST RESTRAINTS IN PLACE TO PREVENT SELF-EXTUBATION. MONITOR SHOWS NSR WITH OCCASIONAL PVCs, RATE 80s. BP STABLE. TEMP 99.9F PER BRANCH TEMP PROBE. OG CLAMPED AT THIS TIME. BRANCH PATENT AND DRAINING TO GRAVITY. LEFT BKA WITH DRSG C/D/I. REDNESS NOTED TO LEFT THIGH AND LOWER ABDOMEN/GROIN. ALSO NOTED TO RLE. RIJ CENTRAL LINE NOTED- DRSG C/D/I. D10 INFUSING AT 20MLS/HR PER ORDER. SEE SHIFT ASSESSMENT FOR FULL ASSESSMENT.
[2023-01-23] VITALS (44 sets, daily range): BP systolic 100–126; BP diastolic 54–90
[2023-01-23 03:41] LABS: BASOPHILS ABSOLUTE AUTO 0.02 K/mm3 (0.00-0.23); BASOPHILS PERCENT AUTO 0 % (0-2); EOSINOPHILS ABSOLUTE AUTO 0.34 K/mm3 (0.00-0.68); EOSINOPHILS PERCENT AUTO 3 % (0-6); Hematocrit 25.5 % (33.0-51.0); Hemoglobin 8.1 g/dL (11.5-16.0); IMMATURE GRAN ABSOLUTE AUTO 0.13 K/mm3 (0.00-0.10); IMMATURE GRAN PERCENT AUTO 1 % (0-1); LYMPHOCYTES ABSOLUTE AUTO 0.96 K/mm3 (0.84-5.20); LYMPHOCYTES PERCENT AUTO 8 % (21-46); MONOCYTES ABSOLUTE AUTO 0.39 K/mm3 (0.16-1.47); MONOCYTES PERCENT AUTO 3 % (4-13); Mean Corpuscular HGB 21.9 pg (26.0-34.0); Mean Corpuscular HGB Conc 31.8 g/dL (31.5-36.5); Mean Corpuscular Volume 69 fL (80-100); NEUTROPHILS ABSOLUTE AUTO 10.13 K/mm3 (1.96-9.15); NEUTROPHILS PERCENT AUTO 85 % (41-73); NRBC ABSOLUTE 0.11 K/mm3 (0.00-0.02); NRBC Auto 0.9 /100 WBC (0.0-0.2); Platelet Count 150 K/mm3 (150-400); RDW Coefficient Variation 18.6 % (11.7-14.2); RDW Standard Deviation 43.2 fL (35.1-46.3); White Blood Cell Count 11.97 K/mm3 (4.00-11.30)
[2023-01-23 04:10] LABS: Albumin/Globulin Ratio 0.4 (0.8-1.8); Bilirubin, Total 1.7 mg/dL (0.1-1.0); Bun/Creatinine Ratio 45.4 (12.0-20.0); Calcium, Blood 7.4 mg/dL (8.5-10.1); Creatinine, Blood 1.08 mg/dL (0.40-1.00); Globulin, Blood 5.4 g/dL (2.2-4.0); Potassium, Blood 2.9 mmol/L (3.5-5.5); Total Protein, Blood 7.4 g/dL (6.4-8.2)
[2023-01-23 04:12] LABS: Phosphorus, Blood 2.6 mg/dL (2.5-4.9)
--- NOTE | 2023-01-23 06:07 | NUR ---
SHIFT SUMMARY NO ACUTE CHANGES. PT REMAINS INTUBATED- AC/VC 24, TV 420, PEEP 10, FIO2 30%. SEDATED WITH PROPOFOL AT 25MCG/KG/MIN. ATTEMPTED TO TITRATE PROPOFOL DOWN FOR SEDATION VACATION, BUT PT QUICKLY STARTED COUGHING AND GAGGING. WITHDRAWS EXTREMITIES TO NOXIOUS STIMULI. NOT FOLLOWING COMMANDS. BILATERAL SOFT WRIST RESTRAINTS REMAIN IN PLACE TO PROTECT ETT. MEDICATED WITH FENTANYL 50MCG IV X 1 DOSE FOR PAIN. OG FLUSHED AFTER MEDS GIVEN AND THEN CLAMPED. BRANCH PATENT AND DRAINING TO GRAVITY. LBKA DRSG C/D/I. CVP CHECKED AT MIDNIGHT- 12. SIGNIFICANT OTHER CALLED FOR UPDATE EARLIER IN SHIFT. WILL REPORT TO ONCOMING RN WHEN AVAILABLE.
--- NOTE | 2023-01-23 07:30 | NUR ---
ASSUMED CARE CARE WAS ASSUMED OF PT AT 0700, REPORT GIVEN BY SAMSON LONG. PT INTUBATED AND SEDATED. PROPOFOL GTT INFUSING, SEE FLOWSHEET. PT RESPONDS TO PAINFUL STIMULI. GAG AND COUGH REFLEX PRESENT. VENT SETTINGS AC/VC 16/420/10/30% AT SHIFT CHANGE. PT TOLERATING WELL, 02 SATS > 94%. CARDIAC MONITORING REFLECTS NSR, HR 80s. SBP 100s. D10 INFUSING. KCL REPLACEMENT INFUSING. PT AFEBRILE. TEMP BRANCH PATENT AND DRAINING TO GRAVITY. OG TUBE CLAMPED. PT REMAINS IN BILATERAL SOFT WRIST RESTRAINTS FOR SAFETY.
--- NOTE | 2023-01-23 12:10 | NUR ---
NOTIFIED PROVIDER, DR. RAZO, REGARDING PT'S RASH PROXIMAL TO SURGICAL SITE AND T/O BODY. WILL COME SEE PATIENT.
--- NOTE | 2023-01-23 13:35 | NUR ---
PROPOFOL PT ON SB AROUND 1230. SINCE THEN PT OPENING EYES SPONTANEOUSLY AND FOLLOWING COMMANDS. PT SQUEEZING HANDS WHEN ASKED TO. PT NODDING HEAD YES AND NO, SHAKING HEAD NO WHEN ASKED IF SHE WAS IN ANY PAIN.
--- NOTE | 2023-01-23 18:16 | NUR ---
SHIFT SUMMARY PT OPENS EYES TO VERBAL STIMULI AND IS FOLLOWING COMMANDS AT THIS TIME. PROPOFOL GTT INFUSING, SEE FLOWSHEET. PT ABLE TO SHAKE HEAD YES AND NO APPROPRIATELY TO QUESTIONS, MOVES RIGHT LEG MOSTLY INDEPENDENTLY AND SQUEEZES BOTH HANDS WHEN INSTRUCTED TO. PT REMAINS INTUBATED, PT'S CURRENT VENT SETTINGS SPONT. PS 7, PEEP 5, FiO2 30%. 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 SETTINGS TOMORROW PER PROVIDER. CARDIAC MONITORING HAS REFLECTED NSR, HR 80s-90s. SBP 110s-120s. CVP 9 THIS SHIFT. BLOOD SUGARS STABLE THIS SHIFT, D10 INFUSING PER EMAR. DR. RAZO CAME TO ASSESS PT'S RASH THAT IS SCATTERED T/O PT'S BODY, SEE PICTURES IN CHART. PT'S DRESSING CHANGED THIS SHIFT TO LEFT BKA. TF INFUSING. KCL INFUSING, SEE EMAR. BRANCH PATENT AND DRAINING TO GRAVITY.
[2023-01-24] VITALS (22 sets, daily range): BP systolic 96–140; BP diastolic 60–94
[2023-01-24 05:23] LABS: BASOPHILS ABSOLUTE AUTO 0.03 K/mm3 (0.00-0.23); BASOPHILS PERCENT AUTO 0 % (0-2); EOSINOPHILS ABSOLUTE AUTO 0.23 K/mm3 (0.00-0.68); EOSINOPHILS PERCENT AUTO 2 % (0-6); Hematocrit 25.4 % (33.0-51.0); Hemoglobin 7.8 g/dL (11.5-16.0); IMMATURE GRAN ABSOLUTE AUTO 0.11 K/mm3 (0.00-0.10); IMMATURE GRAN PERCENT AUTO 1 % (0-1); LYMPHOCYTES ABSOLUTE AUTO 1.26 K/mm3 (0.84-5.20); LYMPHOCYTES PERCENT AUTO 11 % (21-46); MONOCYTES ABSOLUTE AUTO 0.58 K/mm3 (0.16-1.47); MONOCYTES PERCENT AUTO 5 % (4-13); Mean Corpuscular HGB 21.8 pg (26.0-34.0); Mean Corpuscular HGB Conc 30.7 g/dL (31.5-36.5); Mean Corpuscular Volume 71 fL (80-100); NEUTROPHILS ABSOLUTE AUTO 9.45 K/mm3 (1.96-9.15); NEUTROPHILS PERCENT AUTO 81 % (41-73); NRBC ABSOLUTE 0.05 K/mm3 (0.00-0.02); NRBC Auto 0.4 /100 WBC (0.0-0.2); Platelet Count 160 K/mm3 (150-400); RDW Coefficient Variation 19.4 % (11.7-14.2); RDW Standard Deviation 45.4 fL (35.1-46.3); Red Blood Cell Count 3.58 M/mm3 (3.80-5.20); White Blood Cell Count 11.66 K/mm3 (4.00-11.30)
[2023-01-24 05:25] LABS: International Normalized Ratio 1.55; Prothrombin Time Results 15.9 Sec (9.7-11.5)
[2023-01-24 05:28] LABS: Albumin, Blood 1.8 g/dL (3.4-5.0); Albumin/Globulin Ratio 0.3 (0.8-1.8); Bilirubin, Total 1.6 mg/dL (0.1-1.0); Bun/Creatinine Ratio 38.8 (12.0-20.0); Calcium, Blood 7.4 mg/dL (8.5-10.1); Creatinine, Blood 0.75 mg/dL (0.40-1.00); Globulin, Blood 5.2 g/dL (2.2-4.0); Magnesium, Blood 1.7 mg/dL (1.6-2.4); Phosphorus, Blood 1.5 mg/dL (2.5-4.9); Potassium, Blood 3.5 mmol/L (3.5-5.5)
--- NOTE | 2023-01-24 07:30 | NUR ---
ASSUMED CARE CARE WAS ASSUMED OF PT AT 0700, REPORT GIVEN BY SHELIA LONG. PT INTUBATED AND SEDATED. PT RESPONDS TO VERBAL STIMULI AND FOLLOWS COMMANDS. GAG AND COUGH REFLEX PRESENT. PT ABLE TO NOD HEAD YES OR NO APPROPRIATELY TO QUESTIONS. PROPOFOL GTT INFUSING, SEE FLOWSHEET. VENTILATOR SETTINGS AC/VC 24/420/5/30%. PT SYCHRONOUS WITH VENTILATOR, O2 SATS > 95%. PT OCCASIONALLY COUGHING, CLEAR, SLIGHTLY BLOOD-TINGED SPUTUM NOTED IN ETT SUCTION TUBING. CARDIAC MONITORING REFLECTS NSR, HR 80s. SBP 100s. KPHOS INFUSING. TF INFUSING AT GOAL RATE. TEMP BRANCH PATENT AND DRAINING TO GRAVITY.
--- NOTE | 2023-01-24 12:41 | NUR ---
PT EXTUBATED AT 1234 WITH RT. PROVIDER AT BEDSIDE. PT ON 4 L N/C, TOLERATING WELL. O2 SATS > 95%. PT ABLE TO COUGH AND FOLLOW COMMANDS.
[2023-01-24 17:23] LABS: Bun/Creatinine Ratio 32.5 (12.0-20.0); Calcium, Blood 7.6 mg/dL (8.5-10.1); Creatinine, Blood 0.8 mg/dL (0.40-1.00); Potassium, Blood 4.2 mmol/L (3.5-5.5)
--- NOTE | 2023-01-24 18:36 | NUR ---
SHIFT SUMMARY PT EXTUBATED TODAY, SEE NURSE NOTE. PT A/O X4. PT ABLE TO FOLLOW COMMANDS AND ASK QUESTIONS APPROPRIATELY. PT ON 3 L N/C, O2 SATS > 95%. PT HAS SEMI-WEAK, PRODUCTIVE COUGH. PT PRODUCING BLOOD-TINGED SPUTUM. PT ABLE TO SELF-SUCTION INDEPENDENTLY. CARDIAC MONITORING REFLECTS SINUS TACH AT THIS TIME, HR 100s. SBP 130s. CVP 11 THIS SHIFT. DIURESED THIS SHIFT. PT PASSED BEDSIDE SWALLOW AFTER EXTUBATION. PT TOLERATING FULL LIQUID DIET WITH FEEDING ASSISTANCE. BRANCH PATENT AND DRAINING TO GRAVITY.
[2023-01-25] VITALS (14 sets, daily range): BP systolic 120–151; BP diastolic 77–100
[2023-01-25 04:10] LABS: BASOPHILS ABSOLUTE AUTO 0.05 K/mm3 (0.00-0.23); BASOPHILS PERCENT AUTO 0 % (0-2); EOSINOPHILS ABSOLUTE AUTO 0.28 K/mm3 (0.00-0.68); EOSINOPHILS PERCENT AUTO 2 % (0-6); Hematocrit 28.4 % (33.0-51.0); Hemoglobin 8.7 g/dL (11.5-16.0); IMMATURE GRAN ABSOLUTE AUTO 0.12 K/mm3 (0.00-0.10); IMMATURE GRAN PERCENT AUTO 1 % (0-1); LYMPHOCYTES ABSOLUTE AUTO 2.39 K/mm3 (0.84-5.20); LYMPHOCYTES PERCENT AUTO 14 % (21-46); MONOCYTES ABSOLUTE AUTO 0.65 K/mm3 (0.16-1.47); MONOCYTES PERCENT AUTO 4 % (4-13); Mean Corpuscular HGB 22.2 pg (26.0-34.0); Mean Corpuscular HGB Conc 30.6 g/dL (31.5-36.5); Mean Corpuscular Volume 72 fL (80-100); NEUTROPHILS PERCENT AUTO 79 % (41-73); Platelet Count 180 K/mm3 (150-400); RDW Coefficient Variation 20.3 % (11.7-14.2); RDW Standard Deviation 47.5 fL (35.1-46.3); Red Blood Cell Count 3.92 M/mm3 (3.80-5.20); White Blood Cell Count 16.79 K/mm3 (4.00-11.30)
[2023-01-25 04:27] LABS: Albumin/Globulin Ratio 0.4 (0.8-1.8); Bilirubin, Total 1.9 mg/dL (0.1-1.0); Bun/Creatinine Ratio 32.6 (12.0-20.0); Calcium, Blood 7.4 mg/dL (8.5-10.1); Creatinine, Blood 0.64 mg/dL (0.40-1.00); Globulin, Blood 5.7 g/dL (2.2-4.0); Magnesium, Blood 1.4 mg/dL (1.6-2.4); Phosphorus, Blood 2.3 mg/dL (2.5-4.9); Potassium, Blood 4.2 mmol/L (3.5-5.5); Total Protein, Blood 7.7 g/dL (6.4-8.2)
[2023-01-25 04:39] LABS: International Normalized Ratio 1.4; Prothrombin Time Results 14.4 Sec (9.7-11.5)
--- NOTE | 2023-01-25 12:55 | NUR ---
UPDATE PT IS A&OX3, PARTICIPATES IN CONVERSATION AND ASSISTS WITH CARE. RIJ CENTRAL LINE REMOVED, DRESSING IN PLACE. SHE IS ON RA WITH SPO2 >95%. SINUS RHYTHM ON MONITOR WITH RATE IN 90S-100S. PT TOLERATING FULL LIQUID DIET. SHE USES THE YANKAUR INDEPENDENTLY. PT HAS BEEN HAVING LIQUID STOOL, SAMPLE SENT TO LAB. L BKA DRESSING CHANGED. SMALL AMOUNT OF SEROUS DRAINAGE ON PREVIOUS DRESSING.
--- NOTE | 2023-01-25 13:22 | NUR ---
UPDATE BRANCH REMOVED WITH 1550ML DARK YELLOW OUTPUT. CBG 128, D10 GTT ON STANDBY
[2023-01-25 14:10] LABS: C DIFFICILE DNA Negative (Negative)
--- NOTE | 2023-01-25 14:20 | NUR ---
TRANSFER TO SURGICAL FLOOR PT TAKEN TO ROOM 210 VIA GURNEY WITH ALL BELONGINGS AND FAMILY ACCOMPANIED.
--- NOTE | 2023-01-25 17:10 | NUR ---
SHIFT SUMMARY ICU TRANSFER 1425, VSS/RA/AFEBRILE, A&OX3/PLEASANT & COOPERATIVE WITH CARE, TELE ST 104 BPM, CBG Q4, AJIT FLD, VOIDING/SOFT FORMED BM/BEDPAN, REPOSITIONS SELF WELL/CUES. LLE BKA DRESSING CDI/ELEVATED ON PILLOWS. PLAN FOR NPO MIDNIGHT FOR POSSIBLE SALAS THURSDAY. FRIEND ISELA WAS SHAVING RLE AND LEFT SMALL CUT ON PT R ANKLE/LE; DRESSING APPLIED. WILL REPORT TO ONCOMING NOC RN.
[2023-01-26] VITALS (12 sets, daily range): BP systolic 102–146; BP diastolic 50–116
[2023-01-26 06:14] LABS: BASOPHILS ABSOLUTE AUTO 0.06 K/mm3 (0.00-0.23); BASOPHILS PERCENT AUTO 0 % (0-2); EOSINOPHILS ABSOLUTE AUTO 0.24 K/mm3 (0.00-0.68); EOSINOPHILS PERCENT AUTO 2 % (0-6); Hematocrit 30.4 % (33.0-51.0); Hemoglobin 9.2 g/dL (11.5-16.0); IMMATURE GRAN ABSOLUTE AUTO 0.11 K/mm3 (0.00-0.10); IMMATURE GRAN PERCENT AUTO 1 % (0-1); LYMPHOCYTES ABSOLUTE AUTO 2.61 K/mm3 (0.84-5.20); LYMPHOCYTES PERCENT AUTO 17 % (21-46); MONOCYTES ABSOLUTE AUTO 1.09 K/mm3 (0.16-1.47); MONOCYTES PERCENT AUTO 7 % (4-13); Mean Corpuscular HGB Conc 30.3 g/dL (31.5-36.5); Mean Corpuscular Volume 73 fL (80-100); NEUTROPHILS ABSOLUTE AUTO 11.66 K/mm3 (1.96-9.15); NEUTROPHILS PERCENT AUTO 74 % (41-73); Platelet Count 222 K/mm3 (150-400); RDW Coefficient Variation 21.6 % (11.7-14.2); RDW Standard Deviation 47.3 fL (35.1-46.3); Red Blood Cell Count 4.18 M/mm3 (3.80-5.20); White Blood Cell Count 15.77 K/mm3 (4.00-11.30)
[2023-01-26 06:41] LABS: Albumin, Blood 1.9 g/dL (3.4-5.0); Anion Gap 6 mmol/L (6-16); Blood Urea Nitrogen 16 mg/dL (8-24); Bun/Creatinine Ratio 23.3 (12.0-20.0); CO2, Blood 25 mmol/L (21-32); Calcium, Blood 7.7 mg/dL (8.5-10.1); Chloride, Blood 104 mmol/L (98-108); Creatinine, Blood 0.69 mg/dL (0.40-1.00); Glomerular Filtration Rate 106 (60-); Glucose, Blood 87 mg/dL (70-99); Magnesium, Blood 1.6 mg/dL (1.6-2.4); Phosphorus, Blood 2.9 mg/dL (2.5-4.9); Potassium, Blood 4.2 mmol/L (3.5-5.5); Sodium, Blood 135 mmol/L (136-145)
--- NOTE | 2023-01-26 07:52 | NUR ---
POD 10 S/P L BKA. PT VSS T/O NIGHT, SATS >90%, 2LNC PRN T/O NIGHT. PT HAS PROD COUGH, IS USING YANKAUER SX PRN. EXT REMAIN COOL W/DELAYED CAP REFILL. ROOM TEMP COOL, PT DECLINING TO BE COVERED, STATES "I LIKE TO BE COLD" DRESSING TO L STUMP CDI. PAIN MGD W/TYLENOL AND REPOSITIONING. PT HAD SEVERAL VOIDS, PUREWICK IN PLACE. CBG STABLE ONCE D5 1/2 NS STARTED. PT NPO POST MIDNIGHT FOR POSS SALAS TODAY; IVF AND ABX CONT PER ORDERS. PT ANXIOUS AT TIMES, SUPPORT PRN. BEDSIDE REPORT GIVEN TO ETHAN GORDON.
--- NOTE | 2023-01-26 10:54 | NUR ---
PT CONTINUES TO BE SLEEPY DURING SHIFT, SHE WAS INCONTINENT OF BLADDER THIS MORNING. USING OXYGEN FOR COMFORT, SATS REMAIN GREATER THAN 92%. PT HAS BLACK SPOT ON LEFT INDEX FINGER DRY AND HARD TO TOUCH. PT DENIES PAIN OR NUMBNESS AT THIS SITE. PHYSICIAN AWARE. PT REPORTS JUST NOT FEELING GOOD.
[2023-01-26 12:19] LABS: Base Excess Venous 3.2 mmol/L; Bicarbonate Venous 26.3 mmol/L (24.0-30.0); PCO2 Venous 35.3 mmHg (38-42); pH Blood Venous 7.49 (7.34-7.37)
--- NOTE | 2023-01-26 13:00 | NUR ---
Received in person report from Jorge A LONG. Patient transferred to PCU 20 via hospital bed, hooked to monitor, CBG done (102), Pure wick placed and started new PoweeGlide in ANSHUL 17/10. Patient very tired and is awakening with family at bedside. She has not requested anything for pain. She in on RA and sats>90%. She is alert to answer simple questions and communnicate simple needs. BOSWELL appropriately.
--- NOTE | 2023-01-26 13:04 | NUR ---
TRANSFER PT TRANSFERED TO PCU. REPORT GIVEN TO RECIEVING NURSE. ALL BELONGINGS TAKEN OVER WITH PATIENT. PT CONTINUES TO STATE SHE IS VERY TIRED AND HAS SLEPT THROUGH THE TRANSFER. SHE WILL AWAKEN AND ANSWER QUESTIONS BUT FALLS ASLEEP DURING CONVERSATION AT TIMES. DRESSING REMAINS CDI. ORTHO DOCTORS AWARE OF L INDEX FINGER AND ASSESSED. WILL CONTINUE TO ASSESS.
--- NOTE | 2023-01-26 15:30 | NUR ---
Patient has had alot of visitors. She has been resting off and on between people. Repositioned for comfort. She remains on RA and sats >90%. Purewick in place and no urine currently. Meds given per MAR. Patient tolerating well.
--- NOTE | 2023-01-26 18:16 | NUR ---
Patient resting in bed, freinds have gone home. We [facility] with full [facility] [place] [facility] Back to bed and positioned for comfort, Purewick back in place and new pullups. She tolerated small amount of dinner and all meds per MAR. left stump site WNL, C/D/I. Patient is more awake and alert and able to communicate all her needs. D5 1/2 NS at 50 continues and Abx as well. Extremities elevated for comfort.
[2023-01-27 00:33] VITALS: BP 122/75
[2023-01-27 03:33] VITALS: BP 131/85
[2023-01-27 03:51] LABS: BASOPHILS ABSOLUTE AUTO 0.04 K/mm3 (0.00-0.23); BASOPHILS PERCENT AUTO 0 % (0-2); EOSINOPHILS ABSOLUTE AUTO 0.26 K/mm3 (0.00-0.68); EOSINOPHILS PERCENT AUTO 2 % (0-6); Hematocrit 27.7 % (33.0-51.0); Hemoglobin 8.5 g/dL (11.5-16.0); IMMATURE GRAN ABSOLUTE AUTO 0.05 K/mm3 (0.00-0.10); IMMATURE GRAN PERCENT AUTO 0 % (0-1); LYMPHOCYTES ABSOLUTE AUTO 2.32 K/mm3 (0.84-5.20); LYMPHOCYTES PERCENT AUTO 20 % (21-46); MONOCYTES ABSOLUTE AUTO 0.88 K/mm3 (0.16-1.47); MONOCYTES PERCENT AUTO 7 % (4-13); Mean Corpuscular HGB 21.9 pg (26.0-34.0); Mean Corpuscular HGB Conc 30.7 g/dL (31.5-36.5); Mean Corpuscular Volume 71 fL (80-100); NEUTROPHILS ABSOLUTE AUTO 8.28 K/mm3 (1.96-9.15); NEUTROPHILS PERCENT AUTO 70 % (41-73); Platelet Count 265 K/mm3 (150-400); RDW Coefficient Variation 21.6 % (11.7-14.2); RDW Standard Deviation 46.3 fL (35.1-46.3); Red Blood Cell Count 3.88 M/mm3 (3.80-5.20); White Blood Cell Count 11.83 K/mm3 (4.00-11.30)
[2023-01-27 04:09] LABS: Albumin, Blood 1.9 g/dL (3.4-5.0); Anion Gap 3 mmol/L (6-16); Blood Urea Nitrogen 18 mg/dL (8-24); Bun/Creatinine Ratio 26.7 (12.0-20.0); CO2, Blood 26 mmol/L (21-32); Calcium, Blood 7.4 mg/dL (8.5-10.1); Chloride, Blood 105 mmol/L (98-108); Creatinine, Blood 0.67 mg/dL (0.40-1.00); Glomerular Filtration Rate 107 (60-); Glucose, Blood 97 mg/dL (70-99); Phosphorus, Blood 3.1 mg/dL (2.5-4.9); Potassium, Blood 4.2 mmol/L (3.5-5.5); Sodium, Blood 134 mmol/L (136-145)
[2023-01-27 04:57] LABS: Mean Platelet Volume 12.1 fL (9.1-12.4)
--- NOTE | 2023-01-27 07:23 | NUR ---
SHIFT SUMMARY PATIENT ALERT AND ORIENTED X4. WITHDRAWN AND MUMBLES WORDS, CAN BE DIFFICULT TO UNDERSTAND. MEDICATED PER EMAR FOR PAIN. WAS ON ROOM AIR WITH SPO2 >90%, DENIES SHORTNESS OF BREATH. VITAL SIGNS STABLE. NO ACUTE ISSUES NOTED OVERNIGHT. CALL LIGHT WITHIN REACH.
[2023-01-27 07:48] VITALS: BP 143/104
--- NOTE | 2023-01-27 08:15 | NUR ---
AM ASSESSMENT: Pt dozing on and off in bed. Wakes to verbal stimulus. LS clear. HR reg. BT positive. Good cap refil. Pt states that she is having 7/10 pain to L leg. Will treat per orders. Pt is NPO for possible SALAS this AM. Pt understands this. BP stable. BKA wound to L leg dressing is intact, no drainage noted. Pt denies needs. Will continue to monitor.
--- NOTE | 2023-01-27 09:45 | NUR ---
Update: SALAS cancelled. Pt was given breakfast tray after bedbath. Denies needs or questions. Treated with tylenol for pain. Pt changed to medical status. No other changes. Stable at this time.
--- NOTE | 2023-01-27 12:00 | NUR ---
transfer: Pt transfered to medical floor room 335 via w/c with Physical therapist and RECOVERY ANALYST. Stable at time of transfer.
--- NOTE | 2023-01-27 12:10 | NUR ---
ASSUMED CARE OF PATIENT. PATIENT TRANSFERRED FROM PCU 20 TO ROOM 335 VIA W/C. REPORT RECEIVED FROM ETHAN CHAVEZ. PATIENT ABLE TO TRANSFER FROM W/C TO CHAIR WITH FWW AND 1 ASSIST. A/OX4, PLEASANT AND COOPERATIVE. FAMILY AT BEDSIDE. BLOOD SUGAR BEFORE LUNCH WAS 97, NO COVERAGE INDICATED. PATIENT ORIENTED TO ROOM AND USE OF CALL LIGHT. DENIES ANY NEEDS AT THIS TIME.
[2023-01-27 16:45] VITALS: BP 144/92
--- NOTE | 2023-01-27 16:55 | NUR ---
RICHIE TRANSFERRED THIS AFTERNOON FROM PCU. WORKED WITH PT/OT TODAY AND IS DOING VERY WELL TRANSFERRING FROM BED TO CHAIR AND BSC WITH 1-2 ASSIST. VERY MOTIVIATED TO GET MOVING. TOLERATING ADA DIET, ACHS BLOOD SUGARS, PATIENT HAS NOT REQUIRED ANY INSULIN TODAY. VSS, ON 2LO2 TO MAINTAIN SATS. NO NEW CONCERNS THIS SHIFT.
--- NOTE | 2023-01-27 17:02 | NUR ---
Spiritual Care Visit. Pt. is awake in bed and welcomes my visit. Pt. is pleasant. SO is present. Facilitate a life review and consider the progress of the Pts. recovery after surgery. Pt. displays evidence of strength and motivation regarding her recovery. Pt. verbalized how important the visit from Johnathan (comfort dog). Prayed with Pt. and SO. Both verbalize gratitude for the spiritual care visit.
[2023-01-27 19:49] VITALS: BP 133/86
--- NOTE | 2023-01-28 03:52 | NUR ---
[address] POLICE OFFICER SUMMARY VSS. LEFT LEG BKA ELEVATED ON PILLOW PT ALLOWS. DRESSING DRY AND INTACT. TOLERATING PO MEDS AND DIET, IV NATIBIOTICS INFUSING INTERMITTENTLY WITH NS KVO IN BETWEEN. SE APR FOR DETAILS. DENIED PAIN OF BKA WHEN ASKED. O2 PER NC AT 2L/MIN. MED TELE ST AT 106. UP TO BEDSIDE COMMODE WITH 2 PERSON ASSIST NEEDED. HAS BEEN RESTING QUIETLY WITH FEW INTERRUPTIONS. CALL LIGHT IN REACH. RAILS UP X 3 FOR SAFETY. WILL CONTINUE TO MONITOR
[2023-01-28 04:18] VITALS: BP 130/81
[2023-01-28 06:17] LABS: BASOPHILS ABSOLUTE AUTO 0.06 K/mm3 (0.00-0.23); BASOPHILS PERCENT AUTO 1 % (0-2); EOSINOPHILS ABSOLUTE AUTO 0.19 K/mm3 (0.00-0.68); EOSINOPHILS PERCENT AUTO 2 % (0-6); Hematocrit 28.2 % (33.0-51.0); Hemoglobin 8.6 g/dL (11.5-16.0); IMMATURE GRAN ABSOLUTE AUTO 0.05 K/mm3 (0.00-0.10); IMMATURE GRAN PERCENT AUTO 1 % (0-1); LYMPHOCYTES ABSOLUTE AUTO 1.69 K/mm3 (0.84-5.20); LYMPHOCYTES PERCENT AUTO 18 % (21-46); MONOCYTES ABSOLUTE AUTO 1.17 K/mm3 (0.16-1.47); MONOCYTES PERCENT AUTO 13 % (4-13); Mean Corpuscular HGB 22.1 pg (26.0-34.0); Mean Corpuscular HGB Conc 30.5 g/dL (31.5-36.5); Mean Corpuscular Volume 73 fL (80-100); NEUTROPHILS ABSOLUTE AUTO 6.13 K/mm3 (1.96-9.15); NEUTROPHILS PERCENT AUTO 66 % (41-73); Platelet Count 283 K/mm3 (150-400); RDW Coefficient Variation 22.4 % (11.7-14.2); RDW Standard Deviation 47.4 fL (35.1-46.3); Red Blood Cell Count 3.89 M/mm3 (3.80-5.20); White Blood Cell Count 9.29 K/mm3 (4.00-11.30)
[2023-01-28 06:18] LABS: Mean Platelet Volume 12.8 fL (9.1-12.4)
[2023-01-28 06:41] LABS: Albumin, Blood 1.9 g/dL (3.4-5.0); Albumin/Globulin Ratio 0.3 (0.8-1.8); Bilirubin, Total 1.3 mg/dL (0.1-1.0); Bun/Creatinine Ratio 23.1 (12.0-20.0); Calcium, Blood 7.7 mg/dL (8.5-10.1); Creatinine, Blood 0.69 mg/dL (0.40-1.00); Globulin, Blood 5.5 g/dL (2.2-4.0); Potassium, Blood 4.5 mmol/L (3.5-5.5); Total Protein, Blood 7.4 g/dL (6.4-8.2)
[2023-01-28 08:11] VITALS: BP 139/80
[2023-01-28 11:06] VITALS: BP 171/102
[2023-01-28 14:22] VITALS: BP 129/76
--- NOTE | 2023-01-28 15:03 | NUR ---
Spiritual Care Visit. Pt. is awake and sitting up in a recliner when she joyfully welcomes my visit. Pt. is pleasant, and displays evidence of being very committed to have her recovery from her surgery become an inspiration to others. Facilitated conversations regarding things that are spiritual and experiential. Pt. displays evidence of trust and confidant understanding. SO arrived and we continued to normalize the Pts. experience. When the SO took a phone call, I prayed with the Pt. Pt. and SO verbalized gratitude for the spiritual care visit.
[2023-01-28 15:40] LABS: SARS-Cov-2 (COVID-19) PCR, MMC NEGATIVE (NEGATIVE)
[2023-01-28] MEDS ORDERED: GABA300 PO (15:41)
[2023-01-28] MEDS ORDERED: Ventolin5 MG/1 ML INH (15:41)
[2023-01-28] MEDS ORDERED: VISBIOME 112.51 EACH PO (15:42)
[2023-01-28] MEDS ORDERED: CEFAZOLIN SODIUM1 G1 IV (15:42)
[2023-01-28] MEDS ORDERED: JARDIANCE10 MG PO (15:42)
[2023-01-28] MEDS ORDERED: SPIR25 PO (15:42)
--- NOTE | 2023-01-28 17:08 | NUR ---
DISCHARGE PT DISCHARGED TO . TRANSPORTED VIA [facility]. REPORT GIVEN TO NURSE GIBSON AT [place]. DENIES FURTHER QUESTIONS AT TIME OF REPORT. DRESSING TO PG IN ANSHUL CHANGED PRIOR TO LEAVING. PG TO CHERYL REMOVED WITH CATHETER INTACT. PT WORKED WITH OCCUPATIONAL THERAPY PRIOR TO DC AND WAS ABLE TO AMBULATE TO THE BATHROOM WITH MINIMAL ASSISTANCE. DRESSING CHANGED TO L BKA SITE. SITE AT TOP OF STAPLE LINE SLIGHTLY RED AND WARM. AREA MARKED. MD NOTIFIED AT THE TIME. NO OTHER ACUTE CHANGES IN ASSESSMENT PRIOR TO DC.
== END 2023-01-28 17:11 | DRG 853 ==
LOC: ER 21:07 → ICUE 01-16 01:55 → PCU 01-16 01:55 → ICUE 01-16 03:13 → SURS 01-25 14:53 → PCU 01-26 14:13 → MEDS 01-27 11:54 → ENPENDDIS 01-28 13:33 → MEDS 01-28 17:11
PROVIDERS: Emergency Medicine; Family Medicine; Hospitalist; Internal Medicine; Internal Medicine Cardiovascular Disease; Internal Medicine Critical Care Medicine; Pharmacist; Student in an Organized Health Care Education/Training Program; ADMIT Internal Medicine
PROC: 3E033XZ Introduction of Vasopressor into Peripheral Vein, Percutaneous Approach (ICD-10-PCS; principal; 2023-01-15)
PROC: 0Y6J0Z3 Detachment at Left Lower Leg, Low, Open Approach (ICD-10-PCS; 2023-01-16)
PROC: 0S9D0ZZ Drainage of Left Knee Joint, Open Approach (ICD-10-PCS; 2023-01-16)
PROC: 03HY32Z Insertion of Monitoring Device into Upper Artery, Percutaneous Approach (ICD-10-PCS; 2023-01-16)
PROC: 5A1945Z Respiratory Ventilation, 24-96 Consecutive Hours (ICD-10-PCS; 2023-01-16)
PROC: 4A133B1 Monitoring of Arterial Pressure, Peripheral, Percutaneous Approach (ICD-10-PCS; 2023-01-16)
PROC: 4A133J1 Monitoring of Arterial Pulse, Peripheral, Percutaneous Approach (ICD-10-PCS; 2023-01-16)
PROC: 4A133R1 Monitoring of Arterial Saturation, Peripheral, Percutaneous Approach (ICD-10-PCS; 2023-01-16)
PROC: 3E03329 Introduction of Other Anti-infective into Peripheral Vein, Percutaneous Approach (ICD-10-PCS; 2023-01-16)
PROC: 5A09357 Assistance with Respiratory Ventilation, Less than 24 Consecutive Hours, Continuous Positive Airway Pressure (ICD-10-PCS; 2023-01-16)
PROC: 30233S1 Transfusion of Nonautologous Globulin into Peripheral Vein, Percutaneous Approach (ICD-10-PCS; 2023-01-16)
PROC: 0JBR0ZX Excision of Left Foot Subcutaneous Tissue and Fascia, Open Approach, Diagnostic (ICD-10-PCS; 2023-01-16)
PROC: 0JBP0ZX Excision of Left Lower Leg Subcutaneous Tissue and Fascia, Open Approach, Diagnostic (ICD-10-PCS; 2023-01-16)
PROC: 5A1D70Z Performance of Urinary Filtration, Intermittent, Less than 6 Hours Per Day (ICD-10-PCS; 2023-01-17)
PROC: 02HV33Z Insertion of Infusion Device into Superior Vena Cava, Percutaneous Approach (ICD-10-PCS; 2023-01-17)
PROC: 0BH17EZ Insertion of Endotracheal Airway into Trachea, Via Natural or Artificial Opening (ICD-10-PCS; 2023-01-21)
PROC: 5A1945Z Respiratory Ventilation, 24-96 Consecutive Hours (ICD-10-PCS; 2023-01-21)
DX: A48.3 Toxic shock syndrome (principal); G93.41 Metabolic encephalopathy; J96.01 Acute respiratory failure with hypoxia; K72.00 Acute and subacute hepatic failure without coma; R65.21 Severe sepsis with septic shock; N17.0 Acute kidney failure with tubular necrosis; M72.6 Necrotizing fasciitis; I50.23 Acute on chronic systolic (congestive) heart failure; J18.9 Pneumonia, unspecified organism; M00.9 Pyogenic arthritis, unspecified; I42.0 Dilated cardiomyopathy; E87.20 Acidosis, unspecified; I96 Gangrene, not elsewhere classified; M00.262 Other streptococcal arthritis, left knee; E87.1 Hypo-osmolality and hyponatremia; Z99.11 Dependence on respirator [ventilator] status; A40.0 Sepsis due to streptococcus, group A; L03.116 Cellulitis of left lower limb; I07.1 Rheumatic tricuspid insufficiency; I27.20 Pulmonary hypertension, unspecified; K21.9 Gastro-esophageal reflux disease without esophagitis; I11.0 Hypertensive heart disease with heart failure; R77.8 Other specified abnormalities of plasma proteins; I50.82 Biventricular heart failure; F15.10 Other stimulant abuse, uncomplicated; D50.9 Iron deficiency anemia, unspecified; S90.822A Blister (nonthermal), left foot, initial encounter; T19.2XXA Foreign body in vulva and vagina, initial encounter; X58.XXXA Exposure to other specified factors, initial encounter; R23.0 Cyanosis; E16.2 Hypoglycemia, unspecified; R21 Rash and other nonspecific skin eruption; R19.7 Diarrhea, unspecified; R09.89 Other specified symptoms and signs involving the circulatory and respiratory systems; E87.5 Hyperkalemia; E83.42 Hypomagnesemia; E87.6 Hypokalemia; R50.82 Postprocedural fever; G54.6 Phantom limb syndrome with pain; I25.2 Old myocardial infarction; Z79.01 Long term (current) use of anticoagulants; Z86.711 Personal history of pulmonary embolism; Z78.1 Physical restraint status; Z11.52 Encounter for screening for COVID-19
CPT/HCPCS: 0241U; 31720; 36415; 36556; 36600; 36620; 51702; 71045; 71260; 73620; 73700; 76882; 80048; 80053; 80069; 80074; 80202; 81001; 81025; 82140; 82330; 82435; 82550; 82803; 82947; 83540; 83550; 83605; 83735; 83880; 84100; 84132; 84145; 84295; 84484; 85014; 85018; 85025; 85027; 85060; 85220; 85240; 85379; 85384; 85520; 85610; 85651; 85730; 86140; 86317; 86850; 86900; 86901; 86923; 87040; 87070; 87071; 87075; 87081; 87086; 87147; 87205; 87430; 87449; 87493; 87633; 88305; 88307; 89051; 89060; 93005; 93010; 93306; 93308; 93926; 93970; 94002; 94003; 94640; 94664; 94760; 94762; 96365-59; 96366-59; 96367-59; 96368; 97110; 97116; 97162; 97166; 97530; 97535; 99291-25; A9270; C1751; C1752; C9113; J0692; J0696; J0736; J1100; J1459; J1644; J1650; J1940; J2185; J2248; J2250; J2371; J2405; J2540; J2704; J3010; J3370; J3475; J3480; J7030; J7042; J7050; J7060; J7120; P9047; Q9967; U0002

== ENCOUNTER 2025-02-24 07:31 | Day surgery (SDC) | payer OTHER ==
[~2025-02-24] VITALS: Ht 160 cm; Wt 79.4 kg
[~2025-02-24 07:31] MED LIST changes: +ACET325 PO; +CEFAZOLIN SODIUM1 G1 IV; +GABA300 PO; +JARDIANCE10 MG PO; +POTA10T PO; +SPIR25 PO; +VISBIOME 112.51 EACH PO; +Ventolin5 MG/1 ML INH
[2025-02-24] MEDS ORDERED: NS 250 ML IV ONE (07:42)
[2025-02-24] MEDS ORDERED: Heparin Sodium 1000 Units/ML 10ML MDV ONE (07:42)
[2025-02-24] MEDS ORDERED: NS 1,000 ML IV ONE (07:42)
[2025-02-24 07:47] VITALS: BP 121/92
[2025-02-24 07:49] VITALS: BP 121/92
[2025-02-24] MEDS ORDERED: NS 100 ML IV ONE (08:39)
[2025-02-24] MEDS ORDERED: Adenosine 3 MG/ML 30 ML Vial ONE (08:40)
[2025-02-24 09:10] VITALS: BP 133/88
--- NOTE | 2025-02-24 09:12 | NUR ---
PT RETURNED TO RECOVERY ROOM IN RECLINER. RIGHT AC VENOUS SITE SOFT NON-TENDER WITH NO HEMATOMA, NO BLEEING AND INTACT DRESSING. PT DENIES CHEST PAIN. PT'S FRIENDS IN ROOM. PT EATING BREAKFAST. CALL LIGHT IN REACH.
[2025-02-24 09:15] VITALS: BP 119/87
--- NOTE | 2025-02-24 09:19 | NUR ---
DR CUETO IN ROOM TO SEE PT. NO CHANGES TO R AC SITE.
[2025-02-24 09:30] VITALS: BP 121/84
--- NOTE | 2025-02-24 09:53 | NUR ---
NO CHANGES TO R AC SITE. DISCHARGE INSTRUCTIONS REVIEWED ALL QUESTIONS ANSWERED. PT ESCORTED OUT VIA WHEELCHAIR ESCORT.
== END 2025-02-24 10:04 | disposition home or self-care (01) ==
LOC: MHTC 07:31
DX: I27.20 Pulmonary hypertension, unspecified (principal); I42.8 Other cardiomyopathies; I11.0 Hypertensive heart disease with heart failure; I50.810 Right heart failure, unspecified; I44.4 Left anterior fascicular block; E78.5 Hyperlipidemia, unspecified; K21.9 Gastro-esophageal reflux disease without esophagitis; Z79.01 Long term (current) use of anticoagulants; Z79.899 Other long term (current) drug therapy; Z86.711 Personal history of pulmonary embolism
CPT/HCPCS: 93451; C1894; J0153; J1644; J7030; J7050